=== PATIENT | female | born 1990 | race Caucasian/White ===

== ENCOUNTER 2017-01-15 18:06 | Emergency (ER) | payer BC, OTHER ==
[2017-01-15 18:41] VITALS: BP 133/71; PULSE 79; RESP 18; TEMP 98.2
--- NOTE | 2017-01-15 19:05 | XR ---
EXAMINATION TYPE: XR shoulder complete RT DATE OF EXAM: 01/15/2017 CLINICAL HISTORY: pain TECHNIQUE: Three views of the right shoulder are obtained. COMPARISON: None FINDINGS: There is no acute fracture/dislocation evident. The acromioclavicular and glenohumeral dalila int spaces appear within normal limits. The visualized ribs are intact and unremarkable. IMPRESSION: 1. There is no acute fracture or dislocation. ICD 10 NO FRACTURE, INITIAL EVALUATION
--- NOTE | 2017-01-15 19:14 | ED ---
Upper Extremity HPI - General Chief Complaint: Extremity Injury, Upper Stated Complaint: RT SHOULDER INJURY [facility] Time Seen by Provider: 01/15/17 18:44 Source: patient, RN notes reviewed Mode of arrival: ambulatory Limitations: no limitations - History of Present Illness Initial Comments: 26-year-old female presents to the emergency room chief complaint of right shoulder pain. 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 Patient states is more in the anterior shoulder and certain movements make it feel like it is about to pop. Patient states there is no falls or other injury. Patient denies any history of shoulder pain in the past.Patient denies any recent fever , chills, shortness of breath, chest pain, back pain, abdominal pain, nausea vomiting, numbness or tingling, dysuria or hematuria, constipation or diarrhea, headaches or visual changes, or any other current symptoms. Place: work - Related Data Home Medications Medication Instructions Recorded Confirmed Norethindrone-E.estradiol-Iron 1 each PO HS 05/09/15 05/11/15 [Loestrin Fe 1-20 Tablet] Previous Rx's Medication Instructions Recorded Acetaminophen [Tylenol] 2 tab PO Q6H 10 Days 05/11/15 Amoxicillin/Potassium Clav 1 each PO Q12HR #20 tab 05/11/15 [Augmentin 875-125 Tablet] Hydrocodone/Acetaminophen [Pachuta 1 - 2 each PO Q6HR PRN #40 tab 05/11/15 5-325] Ibuprofen [Motrin] 600 mg PO Q6HR PRN #60 tab 05/11/15 predniSONE 20 mg PO DIRECTED #5 tab 05/11/15 Ibuprofen [Motrin] 600 mg PO Q6HR PRN #20 tab 01/15/17 Allergies Allergy/AdvReac Type Severity Reaction Status Date / Time fluconazole [From Diflucan] Allergy Swelling Verified 01/15/17 18:41 OF FACE Review of Systems ROS Statement: Those systems with pertinent positive or pertinent negative responses have been documented in the HPI. ROS Other: All systems not noted in ROS Statement are negative. Past Medical History Past Medical History: Asthma, Syncope Additional Past Medical History / Comment(s): ASTHMA YOUNG CHILD. HX SYNCOPAL EPISODES, VAGO-VAGAL, NONE SINCE 2013. DEVIATED SEPTUM, CHRONIC SINUS INFECTION. History of Any Multi-Drug Resistant Organisms: MRSA Date of last positivie culture/infection: 09/2014 MDRO Source:: AXILLA, POSS IN EAR ALSO. Past Surgical History: Adenoidectomy, Ear Surgery, Tonsillectomy Additional Past Surgical History / Comment(s): BMT Past Anesthesia/Blood Transfusion Reactions: No Reported Reaction Past Psychological History: No Psychological Hx Reported Smoking Status: Never smoker Past Alcohol Use History: None Reported Past Drug Use History: None Reported - Past Family History Mother Family Medical History: No Reported History General Exam Limitations: no limitations General appearance: alert, in no apparent distress Head exam: Present: atraumatic, normocephalic, normal inspection Neck exam: Present: normal inspection. Absent: tenderness, meningismus, lymphadenopathy Respiratory exam: Present: normal lung sounds bilaterally. Absent: respiratory distress, wheezes, rales, rhonchi, stridor Cardiovascular Exam: Present: regular rate, normal rhythm, normal heart sounds. Absent: systolic murmur, diastolic murmur, rubs, gallop, clicks Right Shoulder Exam: Present: normal inspection, tenderness (Tenderness over the anterior shoulder), other (Negative empty can test.). Absent: full ROM ( Limited in all planes due to pain), swelling, abrasion, laceration, ecchymosis, deformity, crepitus, dislocation, erythema, tenderness over AC joint Upper Arm exam: Present: normal inspection, full ROM. Absent: tenderness, swelling Elbow exam: Present: normal inspection, full ROM. Absent: tenderness, swelling Forearm Wrist exam: Present: normal inspection, full ROM. Absent: tenderness, swelling Hand Wrist exam: Present: normal inspection, full ROM. Absent: tenderness, swelling Neuro motor exam: Present: wrist extension intact, thumb opposition intact, thumb IP flexion intact, thumb adduction intact, fingers 2-5 abduction intact Vascular: Present: normal capillary refill. Absent: vascular compromise Back exam: Present: normal inspection Neurological exam: Present: alert, oriented X3 Psychiatric exam: Present: normal affect, normal mood Skin exam: Present: warm, dry, intact, normal color. Absent: rash Course Vital Signs 01/15/17 18:39 Temperature 98.2 F Pulse Rate 79 Respiratory 18 Rate Blood Pressure 133/71 O2 Sat by Pulse 100 Oximetry Medical Decision Making - Medical Decision Making 26-year-old female presents emergency Department what appears to be right shoulder strain. X-rays reviewed and negative. We discussed using Motrin as prescribed and follow-up with orthopedic discussed return parameters. We discussed all the patient's family's questions. They stated they understand and agree with the plan. They will be discharged home. - Radiology Data Radiology results: report reviewed, image reviewed Disposition Clinical Impression: Right shoulder strain Disposition: HOME SELF-CARE Condition: Stable Instructions: Rotator Cuff Injury (ED) Additional Instructions: Please use medication as discussed. Please follow up with family doctor if symptoms have not improved over the next two days. Please return to the emergency room if your symptoms increase or worsen or for any other concerns. Prescriptions: Ibuprofen [Motrin] 600 mg PO Q6HR PRN #20 tab PRN Reason: Pain Referrals: Willi El MD [Primary Care Provider] - 1-2 days Jose Dunn MD [STAFF PHYSICIAN] - 1-2 days Time of Disposition: 19:14
== END 2017-01-15 19:23 | disposition home or self-care (01) ==
LOC: EC 18:06
DX: S46.911A Strain of unspecified muscle, fascia and tendon at shoulder and upper arm level, right arm, initial encounter (principal); Z79.3 Long term (current) use of hormonal contraceptives; Z88.8 Allergy status to other drugs, medicaments and biological substances; X50.9XXA Other and unspecified overexertion or strenuous movements or postures, initial encounter; Y93.F2 Activity, caregiving, lifting; Y92.69 Other specified industrial and construction area as the place of occurrence of the external cause; Y99.0 Civilian activity done for income or pay
CPT/HCPCS: 99283

== ENCOUNTER → 2017-05-15 | Outpatient (CLI) | payer OTHER ==
--- NOTE | 2017-05-16 07:05 | US ---
EXAMINATION TYPE: US OB <= 14 wk fetus DATE OF EXAM: 05/15/2017 COMPARISON: NONE CLINICAL HISTORY: Z36 CONFIRM DATES. G0 EXAM PERFORMED: Transabdominal (TA) EXAM MEASUREMENTS: GESTATIONAL AGE / DATING Physician Established: Not yet established Dates by LMP: (8 weeks/3 days) EDC: 12/22/2017 Dates by First Scan: No previous this is first scan Dates by Current Scan for: (8 weeks/5 days) EDC: 12/20/2017 MATERNAL ANATOMY Uterus: 11.2 x 6.1 x 4.3cm Right Ovary: 2.5 x 1.8 x 1.1cm Left Ovary: 3.4 x 2.7 x 2.1cm Post CDS / Adnexa: wnl Presence of free fluid: no Presence of corpus luteal cyst: seen in left ovary = 1.9 x 1.7 x 1.4cm Presence of subchorionic bleed: no GESTATION / SURVEY CRL: 2.1cm ( 8 weeks/5 days) Yolk Sac (normal less than 6mm): 4.3mm Heart Rate: 171 bpm Rhythm: Normal IUP: Viable IUP Date of LMP: 03/17/2017 Beta HcG (if available): NA IMPRESSION: Single live uterine corresponding to a sonographic age of 8 weeks/5 days with an estimated date of delivery of 12/20/2017 and HR 171bpm. Dates are concordant with the menstrual age.
== END | disposition home or self-care (01) ==
LOC: RADUSWWP 15:38
PROVIDERS: ATTEND Obstetrics & Gynecology
DX: Z36 Encounter for antenatal screening of mother (principal); Z3A.08 8 weeks gestation of pregnancy
CPT/HCPCS: 76801

== ENCOUNTER → 2017-05-23 | Outpatient (CLI) | payer OTHER ==
[2017-05-23 12:20] LABS: CH 29.5; CHCM 32.5; HDW 2.33; HGB 12.8 gm/dL (11.4-16.0); MCH 29.9 pg (25.0-35.0); MCHC 32.9 g/dL (31.0-37.0); Mean Platelet Volume 7.3; RBC 4.28 m/uL (3.80-5.40)
[2017-05-23 12:59] LABS: Glucose 88 mg/dL (74-99); Non-African American GFR(MDRD) >60 (>60 ml/min/1.73 sqM)
[2017-05-23 18:51] LABS: Treponemal Ab Non-Reactive (Non-Reactive)
[2017-05-24 08:05] LABS: Toxoplasma Antibody (IgG) <3.0 IU/mL (<7.2)
== END | disposition home or self-care (01) ==
LOC: LABWHC1 11:54
PROVIDERS: ATTEND Obstetrics & Gynecology
DX: O26.811 Pregnancy related exhaustion and fatigue, first trimester (principal); Z3A.00 Weeks of gestation of pregnancy not specified
CPT/HCPCS: 36415; 82565; 82947; 85027; 86762; 86777; 86778; 86780; 86850; 86900; 86901; 87340; 87390

== ENCOUNTER → 2017-09-09 | Outpatient (CLI) | payer OTHER ==
[2017-09-09 11:15] LABS: HCT 37.4 % (34.0-46.0); HGB 12.4 gm/dL (11.4-16.0); MCH 30.5 pg (25.0-35.0); MCHC 33.1 g/dL (31.0-37.0); MCV 92.2 fL (80.0-100.0); Mean Platelet Volume 7.6; Platelet Count 232 k/uL (150-450); RBC 4.06 m/uL (3.80-5.40); RDW 13.2 % (11.5-15.5); WBC 12.1 k/uL (3.8-10.6)
== END | disposition home or self-care (01) ==
LOC: LABWHC1 08:50
PROVIDERS: ATTEND Obstetrics & Gynecology
DX: Z34.02 Encounter for supervision of normal first pregnancy, second trimester (principal); Z3A.00 Weeks of gestation of pregnancy not specified
CPT/HCPCS: 36415; 82950; 85027

== ENCOUNTER 2017-12-01 11:45 | Inpatient (IN) | payer OTHER ==
[2017-12-01 12:44] LABS: Basophils % (A) 0 %; Eosinophils # (A) 0.1 k/uL (0-0.7); Eosinophils % (A) 1 %; HCT 34.8 % (34.0-46.0); HGB 11.9 gm/dL (11.4-16.0); Lymphocytes # (A) 1.8 k/uL (1.0-4.8); Lymphocytes % (A) 18 %; MCH 29.1 pg (25.0-35.0); MCHC 34.1 g/dL (31.0-37.0); MCV 85.4 fL (80.0-100.0); Mean Platelet Volume 10.1; Monocytes # (A) 0.5 k/uL (0-1.0); Monocytes % (A) 6 %; Neutrophils # (A) 7.1 k/uL (1.3-7.7); Neutrophils % (A) 73 %; Platelet Count 167 k/uL (150-450); RBC 4.07 m/uL (3.80-5.40); WBC 9.8 k/uL (3.8-10.6)
[2017-12-01 12:50] LABS: ALT 16 U/L (9-52); AST 19 U/L (14-36); Blood Urea Nitrogen 6 mg/dL (7-17); LDH 480 U/L (313-618); Uric Acid 4.2 mg/dL (3.7-7.4)
[2017-12-01] MEDS ORDERED: DINOPROSTONE 10 MG INSERT.ER VAGINAL ONE (12:53)
--- NOTE | 2017-12-01 13:04 | P.HPOB ---
History of Present Illness H&P Date: 12/01/17 Chief Complaint: I per tension. This patient is a pleasant 27-year-old 1 para 0 female estimated date of confinement 12/22/2017 estimated gestational age 37 weeks who presented to my office today for routine visit was found to have an elevated blood pressure 140/80. Patient subsequently sent to labor and delivery and has multiple blood pressures with diastolic elevation as high as 97. Patient's care otherwise has been uncomplicated. She does have a history of vasovagal syncope prior to her . Patient does have a positive group B strep. Review of Systems Genitourinary: Reports Past Medical History Past Medical History: Asthma, Syncope Additional Past Medical History / Comment(s): ASTHMA YOUNG CHILD. HX SYNCOPAL EPISODES, VAGO-VAGAL, NONE SINCE 2013. DEVIATED SEPTUM, CHRONIC SINUS INFECTION. History of Any Multi-Drug Resistant Organisms: MRSA Date of last positivie culture/infection: 09/2014 MDRO Source:: AXILLA, POSS IN EAR ALSO. Past Surgical History: Adenoidectomy, Ear Surgery, Tonsillectomy Additional Past Surgical History / Comment(s): BMT Past Anesthesia/Blood Transfusion Reactions: No Reported Reaction Smoking Status: Never smoker - Past Family History Mother Family Medical History: No Reported History Medications and Allergies Home Medications Medication Instructions Recorded Confirmed Type Ibuprofen [Motrin] 600 mg PO Q6HR PRN #20 tab 01/15/17 09/21/17 Rx Pnv,Calcium 72/Iron/Folic Acid 1 tab PO DAILY 09/21/17 09/21/17 History [ Plus Tablet] Allergies Allergy/AdvReac Type Severity Reaction Status Date / Time fluconazole [From Diflucan] Allergy Swelling Verified 12/01/17 12:02 of Lips Exam - Vital Signs Vital signs: Intake and Output 11/30/17 12/01/17 12/01/17 22:59 06:59 14:59 Other: Weight 82.554 kg - OBG Physical Exam Abdomen: bowel sounds normal, no diffuse tenderness, no bruit present, no guarding noted, no hepatomegaly, no splenomegaly, no mass Vagina: normal moisture, no discharge Cervix: no lesion (cervix is closed and thick), no discharge Uterus: enlarged (fundal height is 37 cm) Results blood work shows she is O positive, rubella immune, RPR nonreactive, HIV nonreactive, hepatitis B negative, Glucola was normal, ultrasounds have been normal, group B strep was positive. Result Diagrams: 12/01/17 12:15 Abnormal Lab Results - Last 24 Hours (Table) 12/01/17 Range/Units 12:15 BUN 6 L (7-17) mg/dL Creatinine 0.49 L (0.52-1.04) mg/dL Assessment and Plan Assessment: This patient is a pleasant 27-year-old 1 para 0 female 37-0/7 weeks gestation who is admitted to labor and delivery for evaluation of hypertension and felt to have gestational hypertension. At this time recommendations are to proceed with delivery. Plan is to check preeclampsia blood work, and proceed with Cervidil induction this evening due to unfavorable cervix. Patient will need group B strep prophylaxis in labor. I discussed clinical situation and treatment plan with the patient and she has agreed to proceed. (1) Third trimester Current Visit: Yes Status: Acute Code(s): Z34.93 - ENCNTR FOR SUPRVSN OF NORMAL PREG, UNSP, THIRD TRIMESTER SNOMED Code(s): 89350602 (2) Gestational hypertension Current Visit: Yes Status: Acute Code(s): O13.9 - GESTATIONAL HTN W/O SIGNIFICANT PROTEINURIA, UNSP TRIMESTER SNOMED Code(s): 04166128
[2017-12-01 13:15] LABS: Appearance,Urine Clear (Clear); Bilirubin,Urine Negative (Negative); Blood,Urine Negative (Negative); Color,Urine Light Yellow; Glucose,Urine (UA) Negative (Negative); Ketones,Urine Negative (Negative); Leukocyte Esterase,Urine Large (Negative); Mucus,Urine Rare /hpf; Nitrite,Urine Negative (Negative); PH, Urine 6.5 (5.0-8.0); Protein,Urine Negative (Negative); RBC,Urine 3 /hpf (0-5); Specific Gravity,Urine 1.007 (1.001-1.035); Squamous Epithelial Cell,Urine 3 /hpf (0-4); Urobilinogen,Urine <2.0 mg/dL (<2.0); WBC,Urine 2 /hpf (0-5)
[2017-12-01 13:39] LABS: Anisocytosis (M) Present; Large Platelets Present
[2017-12-01 16:08] VITALS: BMI 33.3
[2017-12-02] MEDS: BUTORPHANOL 1 MG/ML 1 ML VIAL IV PRN ×2 (02:17→06:30)
[2017-12-02] MEDS ORDERED: METHYLERGONOVINE 0.2 MG/ML 1 ML AMP IM PRN (05:15)
[2017-12-02] MEDS ORDERED: LIDOCAINE 1% (PF) 10 MG/ML (30 ML SDV) SQ PRN (05:15)
[2017-12-02] MEDS ORDERED: AMPICILLIN 2,000 MG in SODIUM CHLORIDE 0.9% 100 ML IVPB STA (05:15)
[2017-12-02] MEDS ORDERED: TERBUTALINE 1 MG/ML VIAL SQ PRN (05:15)
[2017-12-02] MEDS ORDERED: CARBOPROST TROMETHAMINE 250 MCG/ML 1 ML AMP IM PRN (05:15)
[2017-12-02] MEDS ORDERED: OXYTOCIN 10 UNIT/ML 1 ML VIAL IM PRN (05:15)
[2017-12-02] MEDS: LACTATED RINGERS 1,000 ML IV SCH ×4 (05:50→22:26)
--- NOTE | 2017-12-02 06:15 | P.PN ---
Progress Note - Text Progress Note Date: 12/02/17 Cervidil was removed at approximately 5:00 this morning. Cervix is 1-2 cm dilated still somewhat thick but soft. heart tones are reassuring. Artificial rupture membranes was done for clear fluid. Patient this time is having regular painful contractions or femoral hold off on Pitocin until needed. Dr. Neri will be taking over on this patient after 8:00 this morning.
[2017-12-02] MEDS: OXYTOCIN 20 UNITS/1000 ML NS 1,000 ML IV SCH (07:43)
[2017-12-02] MEDS ORDERED: BUPIVACAINE (PF) 0.25% 30 ML VIAL ONE (09:27)
[2017-12-02] MEDS ORDERED: SODIUM CHLORIDE 0.9% 100 ML BAG ONE (09:27)
[2017-12-02] MEDS ORDERED: fentaNYL (PF) 50 MCG/ML 5 ML AMP ONE (09:27)
[2017-12-02] MEDS: AMPICILLIN 1,000 MG in SODIUM CHLORIDE 0.9% 50 ML IVPB SCH ×3 (10:02→18:57)
[2017-12-02] MEDS ORDERED: CITRIC ACID-SODIUM CITRATE 15 ML CUP PO ONE (20:21)
[2017-12-02] MEDS ORDERED: MORPHINE SULFATE (PF) 0.3 MG/0.3 ML SYR ONE (20:43)
[2017-12-02] MEDS ORDERED: KETOROLAC 30 MG/ML 1 ML VIAL ONE (20:43)
[2017-12-02] MEDS ORDERED: OXYTOCIN 10 UNIT/ML 1 ML VIAL ONE (20:43)
[2017-12-02] MEDS ORDERED: ONDANSETRON 4 MG/2 ML VIAL ONE (20:43)
[2017-12-02] MEDS ORDERED: MORPHINE SULFATE 2 MG/ML SYRINGE IVP PRN (21:06)
[2017-12-02] MEDS ORDERED: diphenhydrAMINE 50 MG/ML 1 ML VIAL IVP PRN ×3 (21:06→21:26)
[2017-12-02] MEDS ORDERED: KETOROLAC 30 MG/ML 1 ML VIAL IVP PRN (21:06)
[2017-12-02] MEDS ORDERED: ONDANSETRON 4 MG/2 ML VIAL IVP PRN ×2 (21:06→21:26)
[2017-12-02] MEDS ORDERED: NALOXONE 0.4 MG/ML 1 ML VIAL IV PRN ×2 (21:06→21:26)
[2017-12-02] MEDS ORDERED: METOCLOPRAMIDE 5 MG/ML 2 ML VIAL IVP PRN (21:26)
[2017-12-02] MEDS ORDERED: ZOLPIDEM 5 MG TAB PO PRN (21:26)
[2017-12-02] MEDS ORDERED: diphenhydrAMINE 25 MG CAP PO PRN (21:26)
[2017-12-02] MEDS ORDERED: diphenhydrAMINE 50 MG CAP PO PRN (21:26)
[2017-12-02] MEDS ORDERED: ACETAMINOPHEN TAB 325 MG TAB PO PRN (21:26)
[2017-12-02] MEDS ORDERED: MEASLES-MUMPS-RUBELLA VACC/PF 12,500 UNIT/0.5 ML VIAL SQ ONE (21:26)
[2017-12-02] MEDS ORDERED: SIMETHICONE 80 MG CHEWABLE PO PRN (21:26)
[2017-12-02] MEDS ORDERED: HYDROcodone/APAP 5-325MG 1 EACH TAB PO PRN ×2 (21:27)
--- NOTE | 2017-12-02 21:31 | P.OP ---
Date of Procedure: 12/02/17 Preoperative Diagnosis: Intrauterine term with gestational hypertension: Failure to descend Postoperative Diagnosis: Same baby delivered from left occiput transverse position Procedure(s) Performed: Primary low transverse section Anesthesia: spinal Surgeon: Kin Neri Electric Meter Reader #1: Carmina Schuler Estimated Blood Loss (ml): 500 IV fluids (ml): 600 Urine output (ml): 50 Pathology: other (Placenta) Condition: stable Disposition: floor Operative Findings: Male scores and weight are pending but both mother and baby are stable following delivery Description of Procedure: Patient was taken to the operating suite where a spinal anesthetic was found be adequate. She was prepped and draped in the normal sterile fashion and placed in the dorsal supine position with leftward tilt. Initially a Pfannenstiel skin incision was made and this incision was then carried through to underlying layer of the fashion with second knife pack. Fascia was then nicked in the midline and this opening was extended laterally with Garner scissors. Superior and inferior aspect of this incision were then grasped tented up and bluntly and sharply dissected off the rectus muscles. Rectus muscles were then divided in the midline and blunt dissection through the peritoneum was made. This opening was then extended superiorly and inferiorly with good visualization of both bowel bladder. Bladder blade was then placed and the bladder flap identified entered with Metzenbaum scissors and this opening was extended across face uterus with Metzenbaum scissors and digitally created bladder flap. Knife was then used to incise uterus this opening was fully developed with hemostat and extended bluntly. Head was then atraumatically delivered from left occiput transverse position. Mouth nares were then bulb suctioned and a nuchal cord 1 was easily reduced. Interim posterior shoulders were then delivered with gentle downward and upward traction followed by the remainder the baby. Umbilical cord was then clamped and cut in usual fashion an nursery personnel was present to assume care. Placenta was then delivered intact and Pitocin was added to the IV. Uterus was then exteriorized cleared of clots and debris and closed in 2 layers with 0 Vicryl suture. Once excellent hemostasis was obtained blood and debris was suctioned from the posterior cul-de-sac. Uterus was then reinserted into the abdomen and the peritoneal layers close 0 Vicryl suture. Fascial layer was then closed Lobac suture. 3-0 Vicryl was then used to reapproximate the skin and close the space. Skin was then closed with 3-0 Vicryl on a Serge needle. Sponge, lap, needle counts were all correct 2. Patient was then taken to the recovery room in stable and satisfactory condition.
[2017-12-03] MEDS: LACTATED RINGERS 1,000 ML IV SCH (05:33)
[2017-12-03] MEDS: OXYTOCIN 20 UNITS/1000 ML NS 1,000 ML IV SCH (05:33)
[2017-12-03] MEDS: AMPICILLIN 1,000 MG in SODIUM CHLORIDE 0.9% 50 ML IVPB SCH (05:34)
--- NOTE | 2017-12-03 06:21 | P.PNOBGPC ---
Subjective - Subjective Patient reports: Reports appetite normal, Reports voiding normally, Reports pain well controlled, Reports ambulating normally : doing well Objective - Vital Signs Latest vital signs: Vital Signs Temp Pulse Resp BP Pulse Ox 12/03/17 05:37 16 96 12/02/17 22:16 61 16 113/55 99 12/02/17 22:01 97.0 F L 66 16 127/57 98 12/02/17 21:46 100 16 115/54 98 12/02/17 21:31 97.0 F L 75 16 112/56 98 Intake and Output 12/02/17 12/02/17 12/03/17 14:59 22:59 06:59 Intake Total 2300 600 Output Total 550 Balance 2300 50 Intake: IV 600 Intake, IV Titration 2300 Amount Ampicillin 2,000 mg In 300 Sodium Chloride 0.9% 100 ml @ 200 mls/hr IVPB ONCE STA Rx#:[id number] Lactated Ringers 1,000 ml 2000 @ 125 mls/hr IV .Q8H SERENA Rx#:[id number] Output: Urine 50 Estimated Blood Loss 500 Other: Voiding Method Indwelling Catheter - Exam Lungs: bilateral: normal Chest: Normal S1, Normal S2 Extremities: Present: normal Abdomen: Present: normal appearance, soft. Absent: distention, tenderness Incision: Present: normal, dry, intact Uterus: Present: normal, firm Assessment and Plan Assessment: Post operative day #1. Patient is resting, is having some nausea and some episodes of emesis but otherwise feeling well.. Vital signs are stable she's afebrile. Uterus is firm nontender and her incision is intact and dry. CBC pending at this time. My impression this is a normal postoperative course. Plan at this time is to advance diet as tolerated, check CBC, encourage ambulation, and allow the patient to shower. (1) Third trimester Current Visit: Yes Status: Acute Code(s): Z34.93 - ENCNTR FOR SUPRVSN OF NORMAL PREG, UNSP, THIRD TRIMESTER SNOMED Code(s): 52612711 (2) Gestational hypertension Current Visit: Yes Status: Acute Code(s): O13.9 - GESTATIONAL HTN W/O SIGNIFICANT PROTEINURIA, UNSP TRIMESTER SNOMED Code(s): 67327215
[2017-12-03 08:12] LABS: Basophils % (A) 0 %; Eosinophils % (A) 0 %; HCT 31.8 % (34.0-46.0); HGB 10.2 gm/dL (11.4-16.0); Lymphocytes # (A) 1.9 k/uL (1.0-4.8); Lymphocytes % (A) 8 %; MCH 28.1 pg (25.0-35.0); MCV 87.8 fL (80.0-100.0); Mean Platelet Volume 10.4; Monocytes # (A) 0.9 k/uL (0-1.0); Monocytes % (A) 4 %; Neutrophils # (A) 21.9 k/uL (1.3-7.7); Neutrophils % (A) 88 %; Platelet Count 183 k/uL (150-450); RBC 3.62 m/uL (3.80-5.40); RDW 13.4 % (11.5-15.5); WBC 24.9 k/uL (3.8-10.6)
--- NOTE | 2017-12-03 08:37 | P.PN ---
Progress Note - Text Progress Note Date: 12/03/17 Postoperative day 1 status post section under spinal anesthesia, and intrathecal morphine given for postoperative analgesia, patient complaining of nausea, and she is getting IV Zofran to 6 hours, Patient had no headache, vital signs stable , Assessment and plan= postop day 1 status post , pain well controlled she is having side effects from morphine, nausea and vomiting and which is managed with the IV Zofran, recommend to continue the same management, expoected the nausea ,to improve within the next few hours.
[2017-12-03] MEDS: SENNOSIDES-DOCUSATE SODIUM 1 EACH TAB PO SCH ×2 (13:30→22:21)
[2017-12-03] MEDS: IBUPROFEN 600 MG TAB PO PRN ×2 (16:42→22:20)
[2017-12-04 00:09] VITALS: RESP 16
--- NOTE | 2017-12-04 06:16 | P.PNOBGPC ---
Subjective - Subjective Patient reports: Reports appetite normal, Reports voiding normally, Reports pain well controlled, Reports ambulating normally : doing well Objective - Vital Signs Latest vital signs: Vital Signs Temp Pulse Resp BP Pulse Ox 12/04/17 00:00 98.1 F 77 16 103/57 12/03/17 20:45 98.4 F 81 15 108/72 98 12/03/17 16:00 97.8 F 73 16 113/70 12/03/17 12:00 97.1 F L 86 18 100 12/03/17 08:00 97.6 F 66 16 113/74 97 Intake and Output 12/03/17 12/03/17 12/04/17 14:59 22:59 06:59 Output Total 1000 250 250 Balance -1000 -250 -250 Output: Urine 1000 250 250 Straight 500 Uretheral (Grewal) 250 Other: # Voids 1 1 - Exam Lungs: bilateral: normal Chest: Normal S1, Normal S2 Extremities: Present: normal Abdomen: Present: normal appearance, soft. Absent: distention, tenderness Incision: Present: normal, dry, intact Uterus: Present: normal, firm - Labs Labs: Abnormal Lab Results - Last 24 Hours (Table) 12/03/17 Range/Units 07:29 WBC 24.9 H (3.8-10.6) k/uL RBC 3.62 L (3.80-5.40) m/uL Hgb 10.2 L (11.4-16.0) gm/dL Hct 31.8 L (34.0-46.0) % Neutrophils # 21.9 H (1.3-7.7) k/uL Assessment and Plan Assessment: Postoperative day #2. Patient is resting without complaints and states she's feeling much better and would like to go home. Vital signs are stable and she is afebrile. Uterus is firm nontender and her incision is intact and dry. CBC yesterday did show her white count was elevated to 24.9 however she is afebrile. Patient is tolerating regular diet, ambulate, urinating without difficulty. Plan today is to check another CBC. If her white count is going down and she remains afebrile throughout the morning then I will consider discharge home later today per her request. (1) Third trimester Current Visit: Yes Status: Acute Code(s): Z34.93 - ENCNTR FOR SUPRVSN OF NORMAL PREG, UNSP, THIRD TRIMESTER SNOMED Code(s): 98566011 (2) Gestational hypertension Current Visit: Yes Status: Acute Code(s): O13.9 - GESTATIONAL HTN W/O SIGNIFICANT PROTEINURIA, UNSP TRIMESTER SNOMED Code(s): 14586767
[2017-12-04 07:31] LABS: Basophils % (A) 0 %; Eosinophils # (A) 0.2 k/uL (0-0.7); Eosinophils % (A) 1 %; HCT 27.3 % (34.0-46.0); HGB 8.9 gm/dL (11.4-16.0); Lymphocytes # (A) 1.9 k/uL (1.0-4.8); Lymphocytes % (A) 14 %; MCH 28.6 pg (25.0-35.0); MCHC 32.5 g/dL (31.0-37.0); MCV 87.9 fL (80.0-100.0); Mean Platelet Volume 9.2; Monocytes # (A) 0.7 k/uL (0-1.0); Monocytes % (A) 5 %; Neutrophils # (A) 10.3 k/uL (1.3-7.7); Neutrophils % (A) 78 %; Platelet Count 157 k/uL (150-450); RDW 13.5 % (11.5-15.5); WBC 13.1 k/uL (3.8-10.6)
[2017-12-04 08:19] VITALS: BP 113/72; PULSE 85; TEMP 98.6
[2017-12-04] MEDS: IBUPROFEN 600 MG TAB PO PRN (09:43)
--- NOTE | 2017-12-04 12:11 | P.PN ---
Progress Note - Text Progress Note Date: 12/04/17 Patient is seen again and still desires to go home. CBC shows her white count is decreased elevated 13 and she is afebrile. Patient is ambulating, urinating , and tolerating regular diet without difficulty. Patient's felt to be stable for discharge home.
--- NOTE | 2017-12-06 06:50 | P.DS ---
Providers Date of admission: 12/01/17 12:49 Expected date of discharge: 12/04/17 Attending physician: Ahmet Angeles Primary care physician: Stated None - Discharge Diagnosis(es) (1) Third trimester Status: Acute (2) Gestational hypertension Status: Acute Hospital Course: Please see dictated H&P for intimate details of this patient's admission. Brief summary is a pleasant 27-year-old 1 para 0 female 37 weeks gestation who is admitted to labor and delivery for two-stage induction of labor secondary to gestational hypertension. Patient is a Cervidil placed and then subsequently has induction of labor. Patient does progress to complete and after pushing for at least 2 hours requires a section for failure to descent. Postoperative patient does well. She did have an elevated white count on postoperative day 1 but this is thought to be secondary to labor and her section and I repeated discussed the following day and it was normal. Patient no evidence of infection. Patient wishes to go home at this time was felt to be stable for discharge home follow up with me in 6 weeks. Procedures: Induction of labor and primary low transverse section. Patient Condition at Discharge: Good Plan - Discharge Summary New Discharge Prescriptions: No Action Ibuprofen [Motrin] 600 mg PO Q6HR PRN #20 tab PRN Reason: Pain Pnv,Calcium 72/Iron/Folic Acid [ Plus Tablet] 1 tab PO DAILY Discharge Medication List Ibuprofen [Motrin] 600 mg PO Q6HR PRN #20 tab 01/15/17 [Rx] Pnv,Calcium 72/Iron/Folic Acid [ Plus Tablet] 1 tab PO DAILY 09/21/17 [ History] Follow up Appointment(s)/Referral(s): Ahmet Angeles MD [STAFF PHYSICIAN] - 12/15/17 1:30 pm Patient Instructions/Handouts: (DC) Activity/Diet/Wound Care/Special Instructions: No strenuous activity or heavy lifting for 6 weeks. No intercourse or anything per vagina for 6 weeks. Please call if any fever, chills, excessive vaginal bleeding, and/or abdominal pain. Discharge Disposition: HOME SELF-CARE
== END 2017-12-04 13:30 | disposition home or self-care (01) | DRG 766 ==
LOC: FBPOP 11:45 → 4FBP 12:49
PROVIDERS: ADMIT Obstetrics & Gynecology; ATTEND Obstetrics & Gynecology
PROC: 10907ZC Drainage of Amniotic Fluid, Therapeutic from Products of Conception, Via Natural or Artificial Opening (ICD-10-PCS; 2017-12-02)
PROC: 00HU33Z Insertion of Infusion Device into Spinal Canal, Percutaneous Approach (ICD-10-PCS; 2017-12-02)
PROC: 3E0R3NZ Introduction of Analgesics, Hypnotics, Sedatives into Spinal Canal, Percutaneous Approach (ICD-10-PCS; 2017-12-02)
PROC: 10D00Z1 Extraction of Products of Conception, Low, Open Approach (ICD-10-PCS; principal; 2017-12-02 20:47)
DX: O13.4 Gestational [pregnancy-induced] hypertension without significant proteinuria, complicating childbirth (principal); O64.0XX0 Obstructed labor due to incomplete rotation of fetal head, not applicable or unspecified; O32.4XX0 Maternal care for high head at term, not applicable or unspecified; O99.824 Streptococcus B carrier state complicating childbirth; R11.2 Nausea with vomiting, unspecified; O90.89 Other complications of the puerperium, not elsewhere classified; Z3A.37 37 weeks gestation of pregnancy; Z88.8 Allergy status to other drugs, medicaments and biological substances; Z37.0 Single live birth; Z79.1 Long term (current) use of non-steroidal anti-inflammatories (NSAID); Z86.14 Personal history of Methicillin resistant Staphylococcus aureus infection; Z87.09 Personal history of other diseases of the respiratory system; Z90.89 Acquired absence of other organs
CPT/HCPCS: 59025; 81001; 82565; 83615; 84450; 84460; 84520; 84550; 85025; 88307

== ENCOUNTER → 2019-02-19 | Outpatient (CLI) | payer OTHER ==
[2019-02-19 12:42] LABS: Basophils % (A) 1 %; Eosinophils # (A) 0.2 k/uL (0-0.7); Eosinophils % (A) 5 %; HCT 41.2 % (34.0-46.0); HGB 13.5 gm/dL (11.4-16.0); Lymphocytes # (A) 1.9 k/uL (1.0-4.8); Lymphocytes % (A) 36 %; MCH 28.9 pg (25.0-35.0); MCHC 32.8 g/dL (31.0-37.0); MCV 88.2 fL (80.0-100.0); Mean Platelet Volume 7.8; Monocytes # (A) 0.2 k/uL (0-1.0); Monocytes % (A) 3 %; Neutrophils # (A) 2.8 k/uL (1.3-7.7); Neutrophils % (A) 54 %; Platelet Count 218 k/uL (150-450); RBC 4.67 m/uL (3.80-5.40); RDW 13.7 % (11.5-15.5); WBC 5.2 k/uL (3.8-10.6)
== END | disposition home or self-care (01) ==
LOC: LABPAT 12:24
PROVIDERS: ATTEND Obstetrics & Gynecology
DX: Z01.812 Encounter for preprocedural laboratory examination (principal)
CPT/HCPCS: 85025

== ENCOUNTER → 2019-03-05 | Day surgery (SDC) | payer OTHER ==
[2019-03-03 13:39] VITALS: BMI 24.5
--- NOTE | 2019-03-04 08:04 | P.HPOB ---
History of Present Illness H&P Date: 03/04/19 Chief Complaint: Family planning, requesting permanent sterilization. This patient is a pleasant 28 yr old female who is presenting for laparoscopic fallopian tube cauterization for permanent sterilization. Kelly has one living child and I have had multiple discussions with her about and options, she has chosen female permanent sterilization. Review of Systems All systems: negative Constitutional: Denies chills, Denies fever Eyes: denies blurred vision, denies pain Ears, nose, mouth and throat: Denies headache, Denies sore throat Cardiovascular: Denies chest pain, Denies shortness of breath Respiratory: Denies cough Gastrointestinal: Denies abdominal pain, Denies diarrhea, Denies nausea, Denies vomiting Genitourinary: Denies dysuria, Denies hematuria Musculoskeletal: Denies myalgias Integumentary: Denies pruritus, Denies rash Neurological: Denies numbness, Denies weakness Psychiatric: Denies anxiety, Denies depression Endocrine: Denies fatigue, Denies weight change Past Medical History Past Medical History: Asthma, Syncope Additional Past Medical History / Comment(s): ASTHMA YOUNG CHILD. HX SYNCOPAL EPISODES, VAGO-VAGAL, NONE SINCE 2013. DEVIATED SEPTUM, CHRONIC SINUS INFECTION. History of Any Multi-Drug Resistant Organisms: MRSA Date of last positivie culture/infection: 09/2014 MDRO Source:: AXILLA, POSS IN EAR ALSO. Past Surgical History: Adenoidectomy, Section, Ear Surgery, Tonsillectomy Additional Past Surgical History / Comment(s): BMT ,sinus surgery Past Anesthesia/Blood Transfusion Reactions: Postoperative Nausea & Vomiting (PONV) Past Psychological History: No Psychological Hx Reported Smoking Status: Never smoker Past Alcohol Use History: None Reported Past Drug Use History: None Reported - Past Family History Mother Family Medical History: No Reported History Medications and Allergies Home Medications Medication Instructions Recorded Confirmed Type No Known Home Medications 03/03/19 03/03/19 History Allergies Allergy/AdvReac Type Severity Reaction Status Date / Time fluconazole [From Diflucan] Allergy Swelling Verified 03/03/19 13:32 of Lips Exam - OBG Physical Exam Abdomen: bowel sounds normal, no diffuse tenderness, no bruit present, no guarding noted, no hepatomegaly, no splenomegaly, no mass Vulva: both: normal Vagina: normal moisture, no discharge Cervix: no lesion, no discharge Uterus: normal size Assessment and Plan Assessment: This is a pleasant 28 yr old female who is presenting for permanent sterilization. Plan is laparoscopic bilateral fallopian tube cauterization. I have discussed multiple other options for control including hormonal methods, IUD, male sterilization and this is the method she has chosen. She understands that this procedure is considered permanent, however there is a ~12/999 chance of failure. 50% chance of ectopic and/or tubal if ever . We discussed the surgery and risks: infection, bleeding, possible injury to bowel/bladder/vessels and/or other organs. She understands that this procedure is elective. All of the patients questions were answered and a written consent obtained. (1) Family planning Status: Acute Code(s): Z30.09 - ENCOUNTER FOR OTH GENERAL CNSL AND ADVICE ON CONTRACEPTION SNOMED Code(s): 740435883
[~2019-03-05] MED LIST: BUPIVACAINE (PF) 0.25% 30 ML VIAL SQ ONE; DEXAMETHASONE SOD PHOSPHATE 10 MG/ML 1 ML VIAL IV ONE; GLYCOPYRROLATE 0.2 MG/ML 2 ML VIAL ONE; HYDROmorphone (PF) 1 MG/ML ONE; HYDROmorphone 0.5 MG/0.5 ML SYRINGE IVP PRN; KETOROLAC 30 MG/ML 1 ML VIAL ONE; LACTATED RINGERS 1,000 ML IV ONE; LACTATED RINGERS 1,000 ML IV SCH; LIDOCAINE 1% 20 ML VIAL (10MG/ML) FOR IV START INTRADERMA ONE; LIDOCAINE 1% INJ 10MG/ML (20 ML MDV) ONE; MIDAZOLAM 2 MG/2 ML VIAL ONE; NEOSTIGMINE 1 MG/ML 10 ML VIAL ONE; ONDANSETRON 4 MG/2 ML VIAL IVP ONE; ONDANSETRON 4 MG/2 ML VIAL IVP PRN; PROPOFOL 10 MG/ML 20 ML VIAL IV ONE; Pre Op ABX Message 1 EACH MISC MISCELLANE ONE; ROCURONIUM BROMIDE 10 MG/ML 10 ML VIAL IV ONE; SCOPOLAMINE 1.5MG/72HR PATCH TRANSDERM ONE; fentaNYL (PF) 50 MCG/ML 2 ML AMP ONE
--- NOTE | 2019-03-05 08:12 | P.OP ---
Date of Procedure: 03/05/19 Preoperative Diagnosis: Family planning, desires permanent sterilization Postoperative Diagnosis: Same Procedure(s) Performed: Laparoscopic bilateral fallopian tube cauterization Anesthesia: EMERITAA Surgeon: Ahmet Angeles Estimated Blood Loss (ml): 10 Urine output (ml): 25 Pathology: none sent Condition: stable Disposition: PACU Indications for Procedure: Please see dictated H&P for intimate details of this patient's admission. Brief summary is a pleasant 28-year-old 1 para 1 female whose requested permanent sterilization for control. Patient has had multiple discussions about the surgery and the fact that it is permanent. She understands however there is a failure rate of approximately 5 or less per thousand. She understands if she does become she has a 50% chance of a tubal or an ectopic . Patient understands that laparoscopic surgery and apparently has risks including risks of infection, bleeding, possible injury bowel, bladder, vessels, and/or other organs. All the patient's questions are answered and a written consent is obtained. Operative Findings: This patient normal appearing pelvis. Description of Procedure: This patient is taken to the operating room where she is laid in the supine position. She subsequent undergoes general endotracheal anesthesia without incident. With an adequate level of anesthesia she's placed in dorsal lithotomy position. She has a vaginal perineal abdominal prep and drape. I first good on below placed a speculum into the vagina visualizing the cervix. The anterior lip of the cervix was then grabbed with an Allis clamp. I gently cannulate the endocervix with the acorn cannula an Allis is attached to the Allis clamp. Red Thyaer catheter is then placed into the bladder and left in place. This point the speculum is removed, I changed my gloves and go up above. A 1 cm infraumbilical incision is then made. Through this a 10 mm bladed lists optical trochars placed under direct visualization. With peritoneal placement confirmed, pneumoperitoneum was then created to 12 mm of carbon dioxide gas. A 5 mm incision is made through her previous scar. Through this a 5 mm trochars placed under direct visualization. One probe was then placed the pelvis is then visualized. Uterus tubes and ovaries all appear normal. There is a 2 cm functional cyst on the left ovary. The upper abdomen grossly appears normal. With this done bipolar cautery is then used to grabbed the left fallopian tube approximately 4 cm from its cornual insertion. A 2-3 cm segment of the tube was then cauterized in its entirety as demarcated by the volt meter. This done I turned my attention of the right fallopian tube and using a similar technique cauterization is done of the tubal segment. This completed final inspection is done and all appears hemostatic. The lower trochars removed. Pneumoperitoneum was reduced and the upper trochars removed. Incisions are then closed using a 4-0 Vicryl. Steri-Strips and sterile dressing is then applied. I infiltrate both incisions with quarter percent Marcaine. I on below remove the acorn cannula an Allis clamp and catheter. All counts are correct 3. There are no complications. Patient is awakened from anesthesia and taken recovery room in satisfactory condition.
[2019-03-05 08:23] VITALS: TEMP 98
[2019-03-05 08:32] VITALS: RESP 16
[2019-03-05 11:29] VITALS: BP 108/57; PULSE 94
== END | disposition home or self-care (01) ==
LOC: OR 06:26
PROVIDERS: ATTEND Obstetrics & Gynecology
DX: Z30.2 Encounter for sterilization (principal); N83.202 Unspecified ovarian cyst, left side; Z88.8 Allergy status to other drugs, medicaments and biological substances; Z86.14 Personal history of Methicillin resistant Staphylococcus aureus infection
CPT/HCPCS: 58670; 81025; J2250; J1100; J2710; J2405; J2001; J3010; J1885; J1170; J2704

== ENCOUNTER 2019-05-19 15:53 | Emergency (ER) | payer OTHER ==
[2019-05-19 16:06] VITALS: TEMP 98.5
[2019-05-19] MEDS ORDERED: KETOROLAC 30 MG/ML 1 ML VIAL IVP STA (16:46)
[2019-05-19] MEDS ORDERED: SODIUM CHLORIDE 0.9% 1,000 ML IV ONE (16:46)
[2019-05-19] MEDS ORDERED: CLINDAMYCIN 600 MG in DEXTROSE 5% IN WATER 50 ML IVPB STA ×2 (16:46)
[2019-05-19] MEDS ORDERED: SODIUM CHLORIDE 0.9% 1,000 ML IV SCH (17:00)
[2019-05-19 17:14] LABS: Basophils % (A) 1 %; Eosinophils # (A) 0.3 k/uL (0-0.7); Eosinophils % (A) 5 %; HCT 39.5 % (34.0-46.0); Lymphocytes # (A) 1.9 k/uL (1.0-4.8); Lymphocytes % (A) 33 %; MCH 29.4 pg (25.0-35.0); MCV 89.1 fL (80.0-100.0); Mean Platelet Volume 6.8; Monocytes # (A) 0.2 k/uL (0-1.0); Monocytes % (A) 4 %; Neutrophils # (A) 3.2 k/uL (1.3-7.7); Neutrophils % (A) 55 %; Platelet Count 222 k/uL (150-450); RBC 4.43 m/uL (3.80-5.40); RDW 13.2 % (11.5-15.5); WBC 5.7 k/uL (3.8-10.6)
[2019-05-19 17:20] LABS: ALT 17 U/L (9-52); AST 23 U/L (14-36); African American GFR (CKD) >90 (>60 ml/min/1.73 sqM); Albumin 4.6 g/dL (3.5-5.0); Alkaline Phosphatase 53 U/L (38-126); Anion Gap 10 mmol/L; Blood Urea Nitrogen 14 mg/dL (7-17); Calcium 9.6 mg/dL (8.4-10.2); Carbon Dioxide 25 mmol/L (22-30); Chloride 106 mmol/L (98-107); Glucose 115 mg/dL (74-99); Potassium 4.1 mmol/L (3.5-5.1); Sodium 141 mmol/L (137-145); Total Bilirubin 0.3 mg/dL (0.2-1.3); Total Protein 7.3 g/dL (6.3-8.2)
--- NOTE | 2019-05-19 17:42 | ED ---
Skin/Abscess/FB HPI - General Chief complaint: Skin/Abscess/Foreign Body Stated complaint: Infection-Cellulitis on her face Time Seen by Provider: 05/19/19 16:14 Source: patient, RN notes reviewed, old records reviewed Mode of arrival: ambulatory Limitations: no limitations - History of Present Illness Initial comments: Patient is a 28-year-old female, sent from her primary care doctor's office for concern for cellulitis over the right side of her face, and failure of outpatient treatment. Patient reports that on Friday she will comply a small pimple on her right eyebrow. Patient states that she went to her primary care doctor's office due to the pain. Patient states that she received IM Rocephin and was started on Keflex. She was seen by the PA there. Patient reports that the pain seemed to worsen and she was there for recheck. Patient was then sent here for concern for failure of outpatient treatment. 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 - Related Data Home Medications Medication Instructions Recorded Confirmed Cephalexin [Keflex] 1,000 mg PO BID 05/19/19 05/19/19 Previous Rx's Medication Instructions Recorded Clindamycin HCl [Cleocin] 300 mg PO Q6HR #28 cap 05/19/19 valACYclovir HCL [Valtrex] 1,000 mg PO Q8HR #21 tab 05/19/19 Allergies Allergy/AdvReac Type Severity Reaction Status Date / Time fluconazole [From Diflucan] Allergy Swelling Verified 05/19/19 16:51 of Lips Review of Systems ROS Statement: Those systems with pertinent positive or pertinent negative responses have been documented in the HPI. ROS Other: All systems not noted in ROS Statement are negative. Past Medical History Past Medical History: Asthma, Syncope Additional Past Medical History / Comment(s): ASTHMA YOUNG CHILD. HX SYNCOPAL EPISODES, VAGO-VAGAL, NONE SINCE 2013. DEVIATED SEPTUM, CHRONIC SINUS INFECTION. History of Any Multi-Drug Resistant Organisms: MRSA Date of last positivie culture/infection: 09/2014 MDRO Source:: AXILLA, POSS IN EAR ALSO. Past Surgical History: Adenoidectomy, Section, Ear Surgery, Tonsillectomy Additional Past Surgical History / Comment(s): BMT ,sinus surgery Past Anesthesia/Blood Transfusion Reactions: Postoperative Nausea & Vomiting (PONV) Past Psychological History: No Psychological Hx Reported Smoking Status: Never smoker Past Alcohol Use History: None Reported Past Drug Use History: None Reported - Past Family History Mother Family Medical History: No Reported History General Exam - General Exam Comments Initial Comments: Pleasant 28-year-old female. No significant distress. Limitations: no limitations General appearance: alert, in no apparent distress Head exam: Present: atraumatic, normocephalic, normal inspection Eye exam: Present: normal appearance, PERRL, EOMI, other (Patient is to pimple, blisterlike lesions over the right eyebrow.). Absent: scleral icterus, conjunctival injection, periorbital swelling ENT exam: Present: normal exam, TM's normal bilaterally, other (Patient is extremely tender to touch with light palpation over the face. She has roe cheeks. She states that's normal. Patient has no evidence of erysipelas or significant cellulitis at this time.) Neck exam: Present: normal inspection. Absent: tenderness, meningismus, lymphadenopathy Respiratory exam: Present: normal lung sounds bilaterally. Absent: respiratory distress, wheezes, rales, rhonchi, stridor Extremities exam: Present: normal inspection Back exam: Present: normal inspection Neurological exam: Present: alert, oriented X3, CN II-XII intact Psychiatric exam: Present: normal affect, normal mood Course Vital Signs 05/19/19 05/19/19 16:03 16:49 Temperature 98.5 F Pulse Rate 112 H 105 H Respiratory 18 18 Rate Blood Pressure 148/93 139/81 O2 Sat by Pulse 98 98 Oximetry Medical Decision Making - Medical Decision Making 28-year-old female presents for right-sided facial irritation swelling and redness. Symptoms started on Friday with a small blister. She is exquisitely tender to touch. Clinical concern is more consistent with herpes zoster infection. She is no fever at this time. No eye involvement. I discussed with Dr. Harmon we'll also examined the Patient. Since the Patient does have history of MRSA though he would discharge the Patient with a prescription for clindamycin. As well as cover for the antiviral medication such as Valtrex. She was given both of these doses in the emergency department. Dr. Harmon discussed the case with Dr. El. - Lab Data Result diagrams: 05/19/19 16:42 05/19/19 16:42 Lab Results 05/19/19 05/19/19 05/19/19 Range/Units 16:42 16:42 16:42 WBC 5.7 (3.8-10.6) k/uL RBC 4.43 (3.80-5.40) m/uL Hgb 13.0 (11.4-16.0) gm/dL Hct 39.5 (34.0-46.0) % MCV 89.1 (80.0-100.0) fL MCH 29.4 (25.0-35.0) pg MCHC 33.0 (31.0-37.0) g/dL RDW 13.2 (11.5-15.5) % Plt Count 222 (150-450) k/uL Neutrophils % 55 % Lymphocytes % 33 % Monocytes % 4 % Eosinophils % 5 % Basophils % 1 % Neutrophils # 3.2 (1.3-7.7) k/uL Lymphocytes # 1.9 (1.0-4.8) k/uL Monocytes # 0.2 (0-1.0) k/uL Eosinophils # 0.3 (0-0.7) k/uL Basophils # 0.0 (0-0.2) k/uL Sodium 141 (137-145) mmol/L Potassium 4.1 (3.5-5.1) mmol/L Chloride 106 (98-107) mmol/L Carbon Dioxide 25 (22-30) mmol/L Anion Gap 10 mmol/L BUN 14 (7-17) mg/dL Creatinine 0.48 L (0.52-1.04) mg/dL Est GFR (CKD-EPI)AfAm >90 (>60 ml/min/1.73 sqM) Est GFR (CKD-EPI)NonAf >90 (>60 ml/min/1.73 sqM) Glucose 115 H (74-99) mg/dL Plasma Lactic Acid Vinayak 1.0 (0.7-2.0) mmol/L Calcium 9.6 (8.4-10.2) mg/dL Total Bilirubin 0.3 (0.2-1.3) mg/dL AST 23 (14-36) U/L ALT 17 (9-52) U/L Alkaline Phosphatase 53 (38-126) U/L Total Protein 7.3 (6.3-8.2) g/dL Albumin 4.6 (3.5-5.0) g/dL Disposition Clinical Impression: Shingles, Facial pain Disposition: HOME SELF-CARE Condition: Good Instructions (If sedation given, give patient instructions): Shingles (ED) Additional Instructions: Please use medication as discussed. Please follow up with family doctor if symptoms have not improved over the next two days. Please return to the emergenc y room if your symptoms increase or worsen or for any other concerns. Prescriptions: Clindamycin HCl [Cleocin] 300 mg PO Q6HR #28 cap valACYclovir HCL [Valtrex] 1,000 mg PO Q8HR #21 tab Is patient prescribed a controlled substance at d/c from ED?: No Referrals: Willi El MD [Primary Care Provider] - 1-2 days
[2019-05-19] MEDS ORDERED: valACYclovir HCL 1,000 MG TABLET PO STA (17:43)
[2019-05-19 18:16] VITALS: BP 133/87; PULSE 89; RESP 16
== END 2019-05-19 18:51 | disposition home or self-care (01) ==
LOC: EC 15:53
DX: B02.9 Zoster without complications (principal); Z86.14 Personal history of Methicillin resistant Staphylococcus aureus infection; Z88.3 Allergy status to other anti-infective agents
CPT/HCPCS: 99284; 96365; 96375; 36415; 80053; 83605; 85025; J1885

== ENCOUNTER 2019-07-07 02:29 | Emergency (ER) | payer OTHER ==
[2019-07-07 02:37] VITALS: TEMP 98.5
[2019-07-07] MEDS ORDERED: PANTOPRAZOLE 40 MG/10 ML VIAL IVP STA (02:45)
[2019-07-07] MEDS ORDERED: ONDANSETRON 4 MG/2 ML VIAL IVP STA (02:45)
[2019-07-07] MEDS ORDERED: DICYCLOMINE 10 MG/ML 2 ML AMP IM STA (02:45)
[2019-07-07] MEDS ORDERED: SODIUM CHLORIDE 0.9% 1,000 ML IV STA (02:45)
[2019-07-07] MEDS ORDERED: MORPHINE SULFATE 2 MG/ML SYRINGE IVP ONE (03:02)
--- NOTE | 2019-07-07 03:02 | ED ---
Abdominal Pain HPI - General Chief Complaint: Abdominal Pain Stated Complaint: Abdominal Pain Time Seen by Provider: 07/07/19 02:44 Source: patient Mode of arrival: wheelchair Limitations: physical limitation - History of Present Illness Initial Comments: Patient is a 28-year-old female with no significant past medical history is presenting to the emergency room with a chief complaint of abdominal pain. Patient reports she was sleeping and woke up with a sudden onset of right upper quadrant abdominal pain that is not radiating to the right lower quadrant. Patient reports pain with adulation. Patient also reports nausea with one episode of vomiting and diarrhea. Patient denies night sweats fevers or chills. She states the pain is an 8 and sharp in nature. Patient denies taking medication to alleviate the symptoms. She does not concern for because she had tubal ligation a few months ago. - Related Data Home Medications Medication Instructions Recorded Confirmed No Known Home Medications 07/07/19 07/07/19 Allergies Allergy/AdvReac Type Severity Reaction Status Date / Time fluconazole [From Diflucan] Allergy Swelling Verified 07/07/19 02:37 of Lips Review of Systems ROS Statement: Those systems with pertinent positive or pertinent negative responses have been documented in the HPI. ROS Other: All systems not noted in ROS Statement are negative. Past Medical History Past Medical History: Asthma, Syncope Additional Past Medical History / Comment(s): ASTHMA YOUNG CHILD. HX SYNCOPAL EPISODES, VAGO-VAGAL, NONE SINCE 2013. DEVIATED SEPTUM, CHRONIC SINUS INFECTION. History of Any Multi-Drug Resistant Organisms: MRSA Date of last positivie culture/infection: 09/2014 MDRO Source:: AXILLA, POSS IN EAR ALSO. Past Surgical History: Adenoidectomy, Section, Ear Surgery, Tonsillectomy Additional Past Surgical History / Comment(s): BMT ,sinus surgery Past Anesthesia/Blood Transfusion Reactions: Postoperative Nausea & Vomiting (PONV) Past Psychological History: No Psychological Hx Reported Smoking Status: Never smoker Past Alcohol Use History: None Reported Past Drug Use History: None Reported - Past Family History Mother Family Medical History: No Reported History General Exam Limitations: physical limitation General appearance: alert, in no apparent distress Head exam: Present: atraumatic, normocephalic, normal inspection Eye exam: Present: normal appearance Pupils: Present: normal accommodation ENT exam: Present: normal exam, normal oropharynx, mucous membranes moist, TM's normal bilaterally, normal external ear exam Neck exam: Present: normal inspection, full ROM Respiratory exam: Present: normal lung sounds bilaterally Cardiovascular Exam: Present: regular rate, normal rhythm, normal heart sounds GI/Abdominal exam: Present: soft, tenderness (Negative Mercado sign. Positive McBurney point tenderness, positive psoas, positive obturator. Negative Rovsing.), normal bowel sounds. Absent: distended, guarding, rebound, rigid, bruit, pulsatile mass, hernia Extremities exam: Present: normal inspection, full ROM Back exam: Present: normal inspection, full ROM Neurological exam: Present: alert, oriented X3 Psychiatric exam: Present: normal affect, normal mood Skin exam: Present: warm, dry, intact, normal color Course Vital Signs 07/07/19 07/07/19 07/07/19 02:30 03:13 04:11 Temperature 98.5 F 98.5 F Pulse Rate 88 104 H 74 Respiratory 18 18 16 Rate Blood Pressure 117/83 108/54 104/58 O2 Sat by Pulse 100 100 100 Oximetry Medical Decision Making - Medical Decision Making Patient a 28-year-old female presents emergency Department with a chief complaint of abdominal pain. Physical examination is indicative of right lower quadrant abdominal pain without positive signs of appendicitis except for Rovsing sign. Patient states she has tubal ligation. Patient was given fluids, antiemetics and analgesia. CBC showed no leukocytosis. CMP is unremarkable. CT of abdomen and pelvis showing free fluid in the cul-de-sac which I suspect to be from possible ovarian cyst rupture. Patient given a Tylenol 3 starter pack and Zofran. Patient advised about the possible side effects of the medication. Patient was to follow-up with a primary care or a literacy consultant. Strict return parameters were thoroughly discussed the patient was understanding and agreeabl e. Case discussed with physician. - Lab Data Result diagrams: 07/07/19 03:05 07/07/19 03:05 Lab Results 07/07/19 07/07/19 07/07/19 Range/Units 03:05 03:05 03:05 WBC 7.5 (3.8-10.6) k/uL RBC 4.43 (3.80-5.40) m/uL Hgb 13.1 (11.4-16.0) gm/dL Hct 38.8 (34.0-46.0) % MCV 87.7 (80.0-100.0) fL MCH 29.5 (25.0-35.0) pg MCHC 33.7 (31.0-37.0) g/dL RDW 12.5 (11.5-15.5) % Plt Count 287 (150-450) k/uL Neutrophils % 54 % Lymphocytes % 37 % Monocytes % 4 % Eosinophils % 3 % Basophils % 0 % Neutrophils # 4.0 (1.3-7.7) k/uL Lymphocytes # 2.8 (1.0-4.8) k/uL Monocytes # 0.3 (0-1.0) k/uL Eosinophils # 0.2 (0-0.7) k/uL Basophils # 0.0 (0-0.2) k/uL Sodium 138 (137-145) mmol/L Potassium 4.2 (3.5-5.1) mmol/L Chloride 106 (98-107) mmol/L Carbon Dioxide 23 (22-30) mmol/L Anion Gap 9 mmol/L BUN 14 (7-17) mg/dL Creatinine 0.50 L (0.52-1.04) mg/dL Est GFR (CKD-EPI)AfAm >90 (>60 ml/min/1.73 sqM) Est GFR (CKD-EPI)NonAf >90 (>60 ml/min/1.73 sqM) Glucose 120 H (74-99) mg/dL Calcium 9.4 (8.4-10.2) mg/dL Total Bilirubin 0.4 (0.2-1.3) mg/dL AST 22 (14-36) U/L ALT 21 (9-52) U/L Alkaline Phosphatase 72 (38-126) U/L Total Protein 7.1 (6.3-8.2) g/dL Albumin 4.2 (3.5-5.0) g/dL Amylase 59 (30-110) U/L Lipase 134 (23-300) U/L Urine Color Urine Appearance (Clear) Urine pH (5.0-8.0) Ur Specific Aiken (1.001-1.035) Urine Protein (Negative) Urine Glucose (UA) (Negative) Urine Ketones (Negative) Urine Blood (Negative) Urine Nitrite (Negative) Urine Bilirubin (Negative) Urine Urobilinogen (<2.0) mg/dL Ur Leukocyte Esterase (Negative) Urine RBC (0-5) /hpf Urine WBC (0-5) /hpf Ur Squamous Epith Cells (0-4) /hpf Urine Mucus (None) /hpf Urine HCG, Qual Not Detected (Not Detectd) 07/07/19 Range/Units 03:05 WBC (3.8-10.6) k/uL RBC (3.80-5.40) m/uL Hgb (11.4-16.0) gm/dL Hct (34.0-46.0) % MCV (80.0-100.0) fL MCH (25.0-35.0) pg MCHC (31.0-37.0) g/dL RDW (11.5-15.5) % Plt Count (150-450) k/uL Neutrophils % % Lymphocytes % % Monocytes % % Eosinophils % % Basophils % % Neutrophils # (1.3-7.7) k/uL Lymphocytes # (1.0-4.8) k/uL Monocytes # (0-1.0) k/uL Eosinophils # (0-0.7) k/uL Basophils # (0-0.2) k/uL Sodium (137-145) mmol/L Potassium (3.5-5.1) mmol/L Chloride (98-107) mmol/L Carbon Dioxide (22-30) mmol/L Anion Gap mmol/L BUN (7-17) mg/dL Creatinine (0.52-1.04) mg/dL Est GFR (CKD-EPI)AfAm (>60 ml/min/1.73 sqM) Est GFR (CKD-EPI)NonAf (>60 ml/min/1.73 sqM) Glucose (74-99) mg/dL Calcium (8.4-10.2) mg/dL Total Bilirubin (0.2-1.3) mg/dL AST (14-36) U/L ALT (9-52) U/L Alkaline Phosphatase (38-126) U/L Total Protein (6.3-8.2) g/dL Albumin (3.5-5.0) g/dL Amylase (30-110) U/L Lipase (23-300) U/L Urine Color Yellow Urine Appearance Clear (Clear) Urine pH 5.0 (5.0-8.0) Ur Specific Aiken 1.029 (1.001-1.035) Urine Protein Negative (Negative) Urine Glucose (UA) Negative (Negative) Urine Ketones 1+ H (Negative) Urine Blood Negative (Negative) Urine Nitrite Negative (Negative) Urine Bilirubin Negative (Negative) Urine Urobilinogen <2.0 (<2.0) mg/dL Ur Leukocyte Esterase Trace H (Negative) Urine RBC 1 (0-5) /hpf Urine WBC 2 (0-5) /hpf Ur Squamous Epith Cells 2 (0-4) /hpf Urine Mucus Many H (None) /hpf Urine HCG, Qual (Not Detectd) Disposition Clinical Impression: Abdominal pain, Nausea & vomiting Disposition: HOME SELF-CARE Condition: Stable Instructions (If sedation given, give patient instructions): Abdominal Pain (ED) Additional Instructions: Please follow up with primary care. Patient to emergency department if symptoms worsen. Is patient prescribed a controlled substance at d/c from ED?: No Referrals: Willi El MD [Primary Care Provider] - 1-2 days Time of Disposition: 04:21
[2019-07-07 03:14] LABS: Basophils % (A) 0 %; Eosinophils # (A) 0.2 k/uL (0-0.7); Eosinophils % (A) 3 %; HCT 38.8 % (34.0-46.0); HGB 13.1 gm/dL (11.4-16.0); Lymphocytes # (A) 2.8 k/uL (1.0-4.8); Lymphocytes % (A) 37 %; MCH 29.5 pg (25.0-35.0); MCHC 33.7 g/dL (31.0-37.0); MCV 87.7 fL (80.0-100.0); Mean Platelet Volume 6.9; Monocytes # (A) 0.3 k/uL (0-1.0); Monocytes % (A) 4 %; Neutrophils % (A) 54 %; Platelet Count 287 k/uL (150-450); RBC 4.43 m/uL (3.80-5.40); RDW 12.5 % (11.5-15.5); WBC 7.5 k/uL (3.8-10.6)
[2019-07-07 03:22] LABS: ALT 21 U/L (9-52); AST 22 U/L (14-36); African American GFR (CKD) >90 (>60 ml/min/1.73 sqM); Albumin 4.2 g/dL (3.5-5.0); Alkaline Phosphatase 72 U/L (38-126); Amylase 59 U/L (30-110); Anion Gap 9 mmol/L; Blood Urea Nitrogen 14 mg/dL (7-17); Calcium 9.4 mg/dL (8.4-10.2); Carbon Dioxide 23 mmol/L (22-30); Chloride 106 mmol/L (98-107); Glucose 120 mg/dL (74-99); Non-African American GFR(CKD) >90 (>60 ml/min/1.73 sqM); Potassium 4.2 mmol/L (3.5-5.1); Sodium 138 mmol/L (137-145); Total Bilirubin 0.4 mg/dL (0.2-1.3); Total Protein 7.1 g/dL (6.3-8.2)
[2019-07-07 03:27] LABS: Appearance,Urine Clear (Clear); Bilirubin,Urine Negative (Negative); Blood,Urine Negative (Negative); Color,Urine Yellow; Glucose,Urine (UA) Negative (Negative); Ketones,Urine 1+ (Negative); Leukocyte Esterase,Urine Trace (Negative); Mucus,Urine Many /hpf; Nitrite,Urine Negative (Negative); Protein,Urine Negative (Negative); RBC,Urine 1 /hpf (0-5); Specific Gravity,Urine 1.029 (1.001-1.035); Squamous Epithelial Cell,Urine 2 /hpf (0-4); Urobilinogen,Urine <2.0 mg/dL (<2.0)
--- NOTE | 2019-07-07 04:05 | CT ---
EXAMINATION TYPE: CT abdomen pelvis w con DATE OF EXAM: 07/07/2019 COMPARISON: None HISTORY: Patient presents with RLQ pain. CT DLP: 614.4 mGycm Automated exposure control for dose reduction was used. TECHNIQUE: Helical acquisition of images was performed from the lung bases through the pelvis. CONTRAST: Performed without Oral Contrast and with IV Contrast, patient injected with 100mL mL of Isovue 300. FINDINGS: Lung bases are clear. There is no pleural effusion. Heart size is normal. Liver spleen pancreas gallbladder stomach appear normal. Bile ducts are not dilated. There is no adre nal mass. Kidneys show satisfactory contrast opacification. There is no hydronephrosis. Ureters are n ot dilated. There is no retroperitoneal adenopathy. Bladder distends smoothly. There is no inguinal h ernia. There is tiny amount of fluid in the cul-de-sac. Uterus is retroverted. There is probably ante rior wall small uterine fibroid. There is no mesenteric edema. There is no ascites or free air. There is no sign of a bowel obstructio n. There is no evidence of thickened appendix. Appendix is seen and is nondilated. Appendix is cartography supervisor ior at the lower pole right kidney. Lumbar spine is intact. Bony pelvis is intact. IMPRESSION: THERE IS SMALL AMOUNT OF FREE FLUID IN THE CUL-DE-SAC. OTHERWISE NEGATIVE CT SCAN ABDOMEN AND PELVIS.
[2019-07-07 04:11] VITALS: BP 104/58; PULSE 74; RESP 16
[2019-07-07] MEDS ORDERED: ACET/COD 300 MG/30 MG STARTER PACK 6 TAB BTL PO STA (04:20)
[2019-07-07] MEDS ORDERED: ONDANSETRON ODT 4 MG TAB PO STA (04:20)
== END 2019-07-07 04:43 | disposition home or self-care (01) ==
LOC: EC 02:29
DX: R10.11 Right upper quadrant pain (principal); R11.2 Nausea with vomiting, unspecified; R10.31 Right lower quadrant pain; Z98.51 Tubal ligation status; Z88.3 Allergy status to other anti-infective agents; Z86.14 Personal history of Methicillin resistant Staphylococcus aureus infection
CPT/HCPCS: 36415; 80053; 82150; 83690; 85025; 81001; 81025; 74177; 99284; 96374; 96375 ×2; 96372; 96361; J0500; J2405; J2270; C9113; Q9967

== ENCOUNTER → 2019-12-21 | Outpatient (CLI) | payer OTHER ==
[2019-12-21 12:36] LABS: Basophils % (A) 1 %; Eosinophils # (A) 0.2 k/uL (0-0.7); Eosinophils % (A) 3 %; HCT 38.3 % (34.0-46.0); HGB 12.4 gm/dL (11.4-16.0); Lymphocytes # (A) 1.6 k/uL (1.0-4.8); Lymphocytes % (A) 34 %; MCH 29.8 pg (25.0-35.0); MCHC 32.4 g/dL (31.0-37.0); MCV 91.9 fL (80.0-100.0); Mean Platelet Volume 7.8; Monocytes # (A) 0.2 k/uL (0-1.0); Monocytes % (A) 4 %; Neutrophils # (A) 2.7 k/uL (1.3-7.7); Neutrophils % (A) 56 %; Platelet Count 194 k/uL (150-450); RBC 4.17 m/uL (3.80-5.40); RDW 13.3 % (11.5-15.5); WBC 4.8 k/uL (3.8-10.6)
[2019-12-21 14:15] LABS: Erythrocyte Sedimentation Rate 5 mm/hr (0-20)
== END | disposition home or self-care (01) ==
LOC: LABWHC1 12:00
PROVIDERS: ATTEND Otolaryngology
DX: R53.83 Other fatigue (principal); M54.2 Cervicalgia
CPT/HCPCS: 36415; 85025; 85652; 86038; 86431

== ENCOUNTER → 2019-12-28 | Outpatient (CLI) | payer OTHER ==
--- NOTE | 2019-12-28 09:37 | CT ---
EXAMINATION TYPE: CT soft tissue neck w con DATE OF EXAM: 12/28/2019 HISTORY: Lt neck in particular mastoid pain for one month. COMPARISON: NONE CT DLP: 271.1 mGycm. Automated Exposure Control for Dose Reduction was Utilized. TECHNIQUE: CT scan of the neck is performed with IV Contrast, patient injected with 100 mL of Isovue 300, axial images are obtained, coronal and sagittal reformatted images are reviewed. FINDINGS: Airway: Mild or early emphysematous change suspected in visualized lung apices. Parotid/submandibular glands: No gross abnormality seen. Carotid/Vascular Structures: No significant abnormality is present. Osseous Structures: No significant abnormality is seen. Other: Mild mucosal thickening involving bilateral maxillary sinuses and left sphenoid sinus. Moderat e mucosal thickening involving ethmoid sinuses bilaterally. Mild to moderate mucosal thickening invol ving the visualized portion of left frontal sinus. Temporomandibular joints are maintained bilaterally. Scattered prominent but subcentimeter lymph node s throughout the neck bilaterally. No definitive greater than 1 cm abnormal adenopathy. IMPRESSION: No significant abnormality is seen to account for patient's symptoms of left sided jaw pain. Chronic paranasal sinus disease otherwise unremarkable study.
== END | disposition home or self-care (01) ==
LOC: RADCTMAIN 08:45
PROVIDERS: ATTEND Otolaryngology
DX: J34.89 Other specified disorders of nose and nasal sinuses (principal); R49.0 Dysphonia
CPT/HCPCS: 70491; Q9967

== ENCOUNTER 2020-05-10 12:28 | Emergency (ER) | payer OTHER ==
[2020-05-10 12:42] VITALS: TEMP 98.5
[2020-05-10 13:02] VITALS: RESP 18
--- NOTE | 2020-05-10 13:09 | ED ---
General Adult HPI - General Chief complaint: Chest Pain Stated complaint: chest pain Time Seen by Provider: 05/10/20 12:47 Source: patient, RN notes reviewed Mode of arrival: ambulatory Limitations: no limitations - History of Present Illness Initial comments: 29-year-old female presents to the ER for a chief complaint of chest pain 3 hours. Patient reports it started as a sharp stabbing chest pain in the left side of her anterior chest that radiates to her left shoulder. States it is now an aching pain however the sharp stabbing pains do come intermittently. She does believe that breathing worsens the pain. She denies any injuries to the chest wall. Patient denies any cardiac history. Patient did start Adipex one week ago. No other medications.Patient has no other complaints at this time including shortness of breath, abdominal pain, nausea or vomiting, headache, or visual changes. - Related Data Home Medications Medication Instructions Recorded Confirmed Phentermine HCl [Adipex-P] 37.5 mg PO DAILY 05/10/20 05/10/20 Allergies Allergy/AdvReac Type Severity Reaction Status Date / Time fluconazole [From Diflucan] Allergy Swelling Verified 05/10/20 13:59 of Lips Review of Systems ROS Statement: Those systems with pertinent positive or pertinent negative responses have been documented in the HPI. ROS Other: All systems not noted in ROS Statement are negative. Past Medical History Past Medical History: Asthma, Syncope Additional Past Medical History / Comment(s): ASTHMA YOUNG CHILD. HX SYNCOPAL EPISODES, VAGO-VAGAL, NONE SINCE 2013. DEVIATED SEPTUM, CHRONIC SINUS INFECTION. History of Any Multi-Drug Resistant Organisms: MRSA Date of last positivie culture/infection: 09/2014 MDRO Source:: AXILLA, POSS IN EAR ALSO. Past Surgical History: Adenoidectomy, Section, Ear Surgery, Tonsillectomy Additional Past Surgical History / Comment(s): BMT ,sinus surgery Past Anesthesia/Blood Transfusion Reactions: Postoperative Nausea & Vomiting (PONV) Past Psychological History: No Psychological Hx Reported Past Alcohol Use History: None Reported Past Drug Use History: None Reported - Past Family History Mother Family Medical History: No Reported History General Exam Limitations: no limitations General appearance: alert, in no apparent distress Head exam: Present: atraumatic, normocephalic, normal inspection Eye exam: Present: normal appearance, PERRL, EOMI. Absent: scleral icterus, conjunctival injection ENT exam: Present: normal exam, mucous membranes moist Neck exam: Present: normal inspection, full ROM. Absent: tenderness, meningismus, lymphadenopathy Respiratory exam: Present: normal lung sounds bilaterally, chest wall tenderness (Left-sided anterior chest wall tenderness.). Absent: respiratory distress, wheezes, rales, rhonchi, stridor Cardiovascular Exam: Present: regular rate, normal rhythm, normal heart sounds. Absent: systolic murmur, diastolic murmur, rubs, gallop, clicks GI/Abdominal exam: Present: soft, normal bowel sounds. Absent: distended, tenderness, guarding, rebound, rigid Course Vital Signs 05/10/20 12:40 Temperature 98.5 F Pulse Rate 101 H Respiratory 18 Rate Blood Pressure 126/79 O2 Sat by Pulse 100 Oximetry EKG Findings - EKG Comments: EKG Findings:: Sinus rhythm, ventricular rate 83, MN interval 108, QTC 415 Medical Decision Making - Medical Decision Making Vitals are stable. Physical exam does reveal a tender left anterior chest. CBC CMP is unremarkable. Troponin is negative. D-dimer is 0.20. Chest x-ray shows no acute pulmonary process. Heart size is normal. Pain is reproducible. At this time patient may have a chest wall syndrome. Patient should follow up with primary care. She is to return here if she has worsening symptoms. She will take Motrin otherwise. I did recommend patient to discontinue Adipex. - Lab Data Result diagrams: 05/10/20 13:07 05/10/20 13:07 Lab Results 05/10/20 05/10/20 05/10/20 Range/Units 13:07 13:07 13:07 WBC 7.2 (3.8-10.6) k/uL RBC 4.82 (3.80-5.40) m/uL Hgb 13.6 (11.4-16.0) gm/dL Hct 42.4 (34.0-46.0) % MCV 88.0 (80.0-100.0) fL MCH 28.1 (25.0-35.0) pg MCHC 31.9 (31.0-37.0) g/dL RDW 12.9 (11.5-15.5) % Plt Count 223 (150-450) k/uL Neutrophils % 65 % Lymphocytes % 27 % Monocytes % 4 % Eosinophils % 3 % Basophils % 1 % Neutrophils # 4.7 (1.3-7.7) k/uL Lymphocytes # 1.9 (1.0-4.8) k/uL Monocytes # 0.3 (0-1.0) k/uL Eosinophils # 0.2 (0-0.7) k/uL Basophils # 0.0 (0-0.2) k/uL PT 10.7 (9.0-12.0) sec INR 1.0 (<1.2) APTT 26.5 (22.0-30.0) sec D-Dimer 0.20 (<0.60) mg/L FEU Sodium (137-145) mmol/L Potassium (3.5-5.1) mmol/L Chloride (98-107) mmol/L Carbon Dioxide (22-30) mmol/L Anion Gap mmol/L BUN (7-17) mg/dL Creatinine (0.52-1.04) mg/dL Est GFR (CKD-EPI)AfAm (>60 ml/min/1.73 sqM) Est GFR (CKD-EPI)NonAf (>60 ml/min/1.73 sqM) Glucose (74-99) mg/dL Calcium (8.4-10.2) mg/dL Magnesium (1.6-2.3) mg/dL Total Bilirubin (0.2-1.3) mg/dL AST (14-36) U/L ALT (4-34) U/L Alkaline Phosphatase (38-126) U/L Troponin I (0.000-0.034) ng/mL Total Protein (6.3-8.2) g/dL Albumin (3.5-5.0) g/dL Lipase (23-300) U/L Urine HCG, Qual Not Detected (Not Detectd) 05/10/20 05/10/20 Range/Units 13:07 13:07 WBC (3.8-10.6) k/uL RBC (3.80-5.40) m/uL Hgb (11.4-16.0) gm/dL Hct (34.0-46.0) % MCV (80.0-100.0) fL MCH (25.0-35.0) pg MCHC (31.0-37.0) g/dL RDW (11.5-15.5) % Plt Count (150-450) k/uL Neutrophils % % Lymphocytes % % Monocytes % % Eosinophils % % Basophils % % Neutrophils # (1.3-7.7) k/uL Lymphocytes # (1.0-4.8) k/uL Monocytes # (0-1.0) k/uL Eosinophils # (0-0.7) k/uL Basophils # (0-0.2) k/uL PT (9.0-12.0) sec INR (<1.2) APTT (22.0-30.0) sec D-Dimer (<0.60) mg/L FEU Sodium 137 (137-145) mmol/L Potassium 4.0 (3.5-5.1) mmol/L Chloride 105 (98-107) mmol/L Carbon Dioxide 24 (22-30) mmol/L Anion Gap 8 mmol/L BUN 11 (7-17) mg/dL Creatinine 0.54 (0.52-1.04) mg/dL Est GFR (CKD-EPI)AfAm >90 (>60 ml/min/1.73 sqM) Est GFR (CKD-EPI)NonAf >90 (>60 ml/min/1.73 sqM) Glucose 100 H (74-99) mg/dL Calcium 9.6 (8.4-10.2) mg/dL Magnesium 2.0 (1.6-2.3) mg/dL Total Bilirubin 0.6 (0.2-1.3) mg/dL AST 23 (14-36) U/L ALT 11 (4-34) U/L Alkaline Phosphatase 60 (38-126) U/L Troponin I <0.012 (0.000-0.034) ng/mL Total Protein 7.5 (6.3-8.2) g/dL Albumin 4.8 (3.5-5.0) g/dL Lipase 94 (23-300) U/L Urine HCG, Qual (Not Detectd) Disposition Clinical Impression: Atypical chest pain Disposition: HOME SELF-CARE Condition: Good Instructions (If sedation given, give patient instructions): Costochondritis (ED), Chest Pain (ED) Additional Instructions: Please follow-up with your doctor in one to 2 days. Please return to the emerg ency room if you have any worsening symptoms. Is patient prescribed a controlled substance at d/c from ED?: No Referrals: Rayshawn Hooker MD [Primary Care Provider] - 1-2 days Time of Disposition: 14:34
[2020-05-10 13:24] LABS: Basophils % (A) 1 %; Eosinophils # (A) 0.2 k/uL (0-0.7); Eosinophils % (A) 3 %; HCT 42.4 % (34.0-46.0); HGB 13.6 gm/dL (11.4-16.0); Lymphocytes # (A) 1.9 k/uL (1.0-4.8); Lymphocytes % (A) 27 %; MCH 28.1 pg (25.0-35.0); MCHC 31.9 g/dL (31.0-37.0); Monocytes # (A) 0.3 k/uL (0-1.0); Monocytes % (A) 4 %; Neutrophils # (A) 4.7 k/uL (1.3-7.7); Neutrophils % (A) 65 %; Platelet Count 223 k/uL (150-450); RBC 4.82 m/uL (3.80-5.40); RDW 12.9 % (11.5-15.5); WBC 7.2 k/uL (3.8-10.6)
[2020-05-10 13:34] LABS: ALT 11 U/L (4-34); AST 23 U/L (14-36); African American GFR (CKD) >90 (>60 ml/min/1.73 sqM); Albumin 4.8 g/dL (3.5-5.0); Alkaline Phosphatase 60 U/L (38-126); Anion Gap 8 mmol/L; Blood Urea Nitrogen 11 mg/dL (7-17); Calcium 9.6 mg/dL (8.4-10.2); Carbon Dioxide 24 mmol/L (22-30); Chloride 105 mmol/L (98-107); Glucose 100 mg/dL (74-99); Non-African American GFR(CKD) >90 (>60 ml/min/1.73 sqM); Sodium 137 mmol/L (137-145); Total Bilirubin 0.6 mg/dL (0.2-1.3); Total Protein 7.5 g/dL (6.3-8.2)
[2020-05-10 13:42] LABS: D-Dimer 0.2 mg/L FEU (<0.60); Partial Thromboplastin Time 26.5 sec (22.0-30.0); Prothrombin Time 10.7 sec (9.0-12.0)
--- NOTE | 2020-05-10 13:43 | XR ---
EXAMINATION TYPE: XR chest 2V DATE OF EXAM: 05/10/2020 COMPARISON: 05/14/2007 INDICATION: Chest pain TECHNIQUE: Frontal and lateral views of the chest are obtained. FINDINGS: The heart size is normal. The pulmonary vasculature is normal. The lungs are clear. IMPRESSION: 1. No acute pulmonary process.
[2020-05-10] MEDS ORDERED: KETOROLAC 15 MG/ML 1 ML VIAL IVP STA (14:08)
[2020-05-10 14:40] VITALS: BP 132/87; PULSE 98
== END 2020-05-10 14:39 | disposition home or self-care (01) ==
LOC: EC 12:28
DX: R07.89 Other chest pain (principal); Z79.899 Other long term (current) drug therapy; Z88.3 Allergy status to other anti-infective agents
CPT/HCPCS: 36415; 93005; 85379; 80053; 83690; 83735; 84484; 85025; 85610; 85730; 81025; 71046; 99285; 96374; J1885

== ENCOUNTER → 2021-02-13 | Outpatient (CLI) | payer BC ==
--- NOTE | 2021-02-13 10:42 | USB ---
Reason for exam: clinical finding. History: Family history of breast cancer in maternal aunt at age 50. Indicated problem(s): palpable abnormality in the right breast. Physical Findings: Nurse did not find any significant physical abnormalities on exam. US Breast Limited RT Right limited breast ultrasound including focal area of concern, retroareolar and axilla demonstrates no cystic or solid lesion seen. No sonographic findings at right breast lump. These results were verbally communicated with the patient and result sheet given to the patient on 02/13/21. ASSESSMENT: Negative, BI-RAD 1 RECOMMENDATION: Clinical management of the right breast. Manage on a clinical basis with regard to right breast lump.
== END | disposition home or self-care (01) ==
LOC: RADUSWWP 09:36
PROVIDERS: ATTEND Obstetrics & Gynecology
DX: R92.8 Other abnormal and inconclusive findings on diagnostic imaging of breast (principal); Z80.3 Family history of malignant neoplasm of breast

== ENCOUNTER → 2021-02-22 | Outpatient (CLI) | payer BC | END | disposition home or self-care (01) ==

== ENCOUNTER → 2021-03-23 | Outpatient (CLI) | payer BC ==
--- NOTE | 2021-03-23 14:37 | EEG ---
ELECTROENCEPHALOGRAM REPORT DATE OF SERVICE: 03/23/2021 CLINICAL HISTORY: This is a 30-year-old woman with reported history of syncope who has new onset right eye twitching that evolves into a whole body tremor. The video EEG is obtained to evaluate for seizure epileptiform activity. RELEVANT MEDICATION: The patient is not on any anti-epileptic drugs. EEG TYPE: A routine 21 channel EEG is performed with video using the 10/20 electrode placement system. DESCRIPTION: Wakefulness and brief drowsiness are obtained. During wakefulness, there is a posterior dominant rhythm of low to moderate voltage of 11 hertz activity. There was no physiological sleep abductors seen. Interictal and ictal is none. ACTIVATION PROCEDURE: Photic stimulation did evoke a posterior driving response at multiple flash frequencies. During photic stimulation, the patient had episodes of right side shaking, right eye complaints and feeling dizzy and that was noted by the electroencephalographic technician around 7:38, 7:39 and 7:41. Those episodes are without any EEG correlate for seizure. Hyperventilation is not performed. CLINICAL INTERPRETATION: This is a normal routine EEG. There are no focal slowing, epileptiform discharges or seizures on the EEG. The event captured during this study are without any EEG correlate for seizure. Clinical correlation is recommended. RECOMMENDATION: Recommend prolonged EEG to capture further episodes to rule out seizures. MMODL / IJN: [id number] / ODALYS
== END | disposition home or self-care (01) ==
LOC: NEUROMAIN 06:52
PROVIDERS: ATTEND Family Medicine
DX: G40.109 Localization-related (focal) (partial) symptomatic epilepsy and epileptic syndromes with simple partial seizures, not intractable, without status epilepticus (principal)
CPT/HCPCS: 95816

== ENCOUNTER → 2021-04-13 | Outpatient (CLI) | payer BC ==
[2021-04-13 16:52] LABS: Basophils # (A) 0.03 X 10*3/uL (0.00-0.10); Basophils % (A) 0.6 %; Eosinophils # (A) 0.17 X 10*3/uL (0.04-0.35); Eosinophils % (A) 3.2 %; HCT 39.7 % (37.2-46.3); Lymphocytes # (A) 1.53 X 10*3/uL (0.90-5.00); Lymphocytes % (A) 28.7 %; MCHC 32.7 g/dL (32.0-37.0); MCV 91.7 fL (80.0-97.0); Mean Platelet Volume 11.2 fL (9.5-12.2); Monocytes # (A) 0.29 X 10*3/uL (0.20-1.00); Monocytes % (A) 5.4 %; Neutrophils # (A) 3.31 X 10*3/uL (1.80-7.70); Neutrophils % (A) 61.9 %; Platelet Count 228 X 10*3/uL (140-440); RBC 4.33 X 10*6/uL (4.10-5.20); RDW 12.6 % (11.5-14.5); WBC 5.34 X 10*3/uL (4.50-10.00)
[2021-04-13 19:28] LABS: African American GFR (CKD) 142.8 (60.0-200.0); Albumin 4.5 g/dL (3.80-4.90); Albumin/Globulin Ratio 2.05 (1.60-3.17); Anion Gap 10.7 mmol/L (4.00-12.00); Carbon Dioxide 25.3 mmol/L (21.6-31.8); Globulin 2.2 g/dL (1.6-3.3); Magnesium 1.8 mg/dL (1.5-2.4); Non-African American GFR(CKD) 123.2 (60.0-200.0); Total Bilirubin 0.5 mg/dL (0.2-1.2); Total Protein 6.7 g/dL (6.2-8.2)
[2021-04-13 20:12] LABS: Folate, Serum 14.2 ng/mL
[2021-04-13 20:34] LABS: Hemoglobin A1C 4.9 % (4.0-6.0)
== END | disposition home or self-care (01) ==
LOC: LABWHC1 09:13
PROVIDERS: ATTEND Nurse Practitioner Adult Health
DX: I95.1 Orthostatic hypotension (principal); R25.1 Tremor, unspecified
CPT/HCPCS: 36415; 80053; 82024; 82533; 82607; 82746; 83036; 83735; 83970; 84439; 84443; 84588; 85025; 86376; 86800

== ENCOUNTER → 2021-04-17 | Outpatient (CLI) | payer BC ==
--- NOTE | 2021-04-18 04:22 | MR ---
EXAMINATION TYPE: MR brain wo/w con DATE OF EXAM: 04/17/2021 COMPARISON: None HISTORY: Partial seizure and tremors for 1 month. CONTRAST: Standard multiplanar, multisequence MRI departmental protocol utilizing 6 mL intravenous Gadavist isaiah olinium contrast. Multiplanar multiecho imaging of the brain without and subsequently with intravenous contrast. Ventricles and sulci appear normal. There is no mass effect nor midline shift. There is no evidence o f intracranial hemorrhage. The diffusion images show no evidence of an acute infarct. There is some mild mucosal thickening in the maxillary sinuses. The roman-white matter structures have fairly normal signal pattern. There is no evidence of cerebral edema. Brainstem is intact. Corpus ca llosum appears normal. Sella turcica appears intact. Pituitary stalk is in the midline. Optic chiasm appears normal. There is uniform enhancement of the pituitary gland. There is normal enhancement of the venous sinuses. There is no pathologic enhancement. There is some mild mucosal thickening in the left frontal and bilateral ethmoid sinuses. IMPRESSION: Negative MR scan of the brain. Sinusitis.
== END | disposition home or self-care (01) ==
LOC: RADMRIMAIN 15:53
PROVIDERS: ATTEND Family Medicine
DX: R56.9 Unspecified convulsions (principal); R25.1 Tremor, unspecified; J32.9 Chronic sinusitis, unspecified
CPT/HCPCS: 70553; A9585

== ENCOUNTER 2022-01-27 11:01 | Emergency (ER) | payer BC ==
[2022-01-27] MEDS ORDERED: METOCLOPRAMIDE 5 MG/ML 2 ML VIAL IVP STA (11:31)
[2022-01-27] MEDS ORDERED: SODIUM CHLORIDE 0.9% 1,000 ML IV STA (11:31)
[2022-01-27] MEDS ORDERED: SODIUM CHLORIDE 0.9% 500 ML 500 ML IV STA (11:31)
[2022-01-27 11:32] VITALS: RESP 18
[2022-01-27 12:04] LABS: Basophils # (A) 0.1 k/uL (0-0.2); Basophils % (A) 1 %; Eosinophils # (A) 0.3 k/uL (0-0.7); Eosinophils % (A) 5 %; HCT 41.4 % (34.0-46.0); HGB 13.1 gm/dL (11.4-16.0); Lymphocytes # (A) 1.8 k/uL (1.0-4.8); Lymphocytes % (A) 33 %; MCH 29.3 pg (25.0-35.0); MCHC 31.7 g/dL (31.0-37.0); MCV 92.6 fL (80.0-100.0); Mean Platelet Volume 7.8; Monocytes # (A) 0.3 k/uL (0-1.0); Monocytes % (A) 5 %; Neutrophils # (A) 2.9 k/uL (1.3-7.7); Neutrophils % (A) 54 %; Platelet Count 208 k/uL (150-450); RBC 4.47 m/uL (3.80-5.40); RDW 12.5 % (11.5-15.5); WBC 5.3 k/uL (3.8-10.6)
[2022-01-27 12:10] LABS: ALT 15 U/L (4-34); African American GFR (CKD) >90 (>60 ml/min/1.73 sqM); Albumin 4.7 g/dL (3.5-5.0); Amylase 64 U/L (30-110); Anion Gap 8 mmol/L; Blood Urea Nitrogen 15 mg/dL (7-17); Calcium 9.1 mg/dL (8.4-10.2); Carbon Dioxide 27 mmol/L (22-30); Chloride 104 mmol/L (98-107); Glucose 88 mg/dL (74-99); Lipase 71 U/L (23-300); Non-African American GFR(CKD) >90 (>60 ml/min/1.73 sqM); Sodium 139 mmol/L (137-145); Total Bilirubin 0.7 mg/dL (0.2-1.3); Total Protein 7.4 g/dL (6.3-8.2)
--- NOTE | 2022-01-27 12:12 | US ---
EXAMINATION TYPE: US gallbladder DATE OF EXAM: 01/27/2022 COMPARISON: None CLINICAL HISTORY: pain. Nausea EXAM MEASUREMENTS: Liver Length: 13.6 cm Gallbladder Wall: 0.2 cm CBD: 0.2 cm Right Kidney: 10.8 x 5.2 x 4.1 cm Pancreas: wnl Liver: wnl Gallbladder: wnl Evidence for sonographic Mercado's sign: neg CBD: wnl Right Kidney: No hydronephrosis or masses seen There are no renal calcifications or solid renal masses. IMPRESSION: No significant abnormality seen.
[2022-01-27 12:29] LABS: AST 31 U/L (14-36); Alkaline Phosphatase 38 U/L (38-126)
--- NOTE | 2022-01-27 13:17 | ED ---
Abdominal Pain HPI - General Chief Complaint: Abdominal Pain Stated Complaint: Abd pain Time Seen by Provider: 01/27/22 11:21 Source: patient, RN notes reviewed Mode of arrival: ambulatory Limitations: no limitations - History of Present Illness Initial Comments: 31-year-old female presents emergency Department chief complaint of abdominal pain, distention. Patient states his started sore week ago initially with just some mild GI symptoms. She states she is that she had a viral illness. She states that isn't persistent including increasing bloating the next several days. She states that she became constipated though she had normal bowel movement last few days which she continues to have worsening abdominal discomfort. Patient denies any fever or chills at this time she states that she is at some chills she had prior tubal ligation no appendectomy or cholecystectomy. No chest pain or shortness of breath. Patient denies any dysuria hematuria patient offers no other complaints. - Related Data Home Medications Medication Instructions Recorded Confirmed FLUoxetine HCL [PROzac] 20 mg PO DAILY 01/27/22 01/27/22 buPROPion XL [Wellbutrin XL] 150 mg PO DAILY 01/27/22 01/27/22 Previous Rx's Medication Instructions Recorded Dicyclomine [Bentyl] 20 mg PO TID #21 tablet 01/27/22 Metoclopramide [Reglan] 10 mg PO TID PRN #15 tab 01/27/22 Allergies Allergy/AdvReac Type Severity Reaction Status Date / Time fluconazole [From Diflucan] Allergy Anaphylaxis Verified 01/27/22 12:55 Review of Systems ROS Statement: Those systems with pertinent positive or pertinent negative responses have been documented in the HPI. ROS Other: All systems not noted in ROS Statement are negative. Past Medical History Past Medical History: Asthma, Syncope Additional Past Medical History / Comment(s): ASTHMA YOUNG CHILD. HX SYNCOPAL EPISODES, VAGO-VAGAL, NONE SINCE 2013. DEVIATED SEPTUM, CHRONIC SINUS INFECTION. History of Any Multi-Drug Resistant Organisms: MRSA Date of last positivie culture/infection: 09/2014 MDRO Source:: AXILLA, POSS IN EAR ALSO. Past Surgical History: Adenoidectomy, Section, Ear Surgery, Tonsillectomy Additional Past Surgical History / Comment(s): BMT ,sinus surgery Past Anesthesia/Blood Transfusion Reactions: Postoperative Nausea & Vomiting (PONV) Past Psychological History: No Psychological Hx Reported Past Alcohol Use History: None Reported Past Drug Use History: None Reported - Past Family History Mother Family Medical History: No Reported History General Exam Limitations: no limitations General appearance: alert, in no apparent distress Head exam: Present: atraumatic, normocephalic, normal inspection Eye exam: Present: normal appearance, PERRL, EOMI. Absent: scleral icterus, conjunctival injection, periorbital swelling ENT exam: Present: normal exam, normal oropharynx, mucous membranes moist Neck exam: Present: normal inspection, full ROM. Absent: tenderness, meningismus, lymphadenopathy Respiratory exam: Present: normal lung sounds bilaterally. Absent: respiratory distress, wheezes, rales, rhonchi, stridor Cardiovascular Exam: Present: regular rate, normal rhythm, normal heart sounds. Absent: systolic murmur, diastolic murmur, rubs, gallop, clicks GI/Abdominal exam: Present: soft, tenderness, normal bowel sounds. Absent: distended, guarding, rebound, rigid Course Vital Signs 01/27/22 01/27/22 11:12 11:30 Temperature 98.1 F 98.1 F Pulse Rate 80 75 Respiratory 16 18 Rate Blood Pressure 133/78 116/82 O2 Sat by Pulse 100 100 Oximetry Medical Decision Making - Medical Decision Making 31-year-old female present for abdominal discomfort. Patient had on-and-off symptoms for 1 week. Workup was negative at this time. Patient symptoms are with enteritis may residual symptoms. Patient will be discharged she states she feels improved after IV fluids and antiemetics. - Lab Data Result diagrams: 01/27/22 11:38 01/27/22 11:38 Lab Results 01/27/22 01/27/22 01/27/22 Range/Units 11:38 11:38 11:38 WBC 5.3 (3.8-10.6) k/uL RBC 4.47 (3.80-5.40) m/uL Hgb 13.1 (11.4-16.0) gm/dL Hct 41.4 (34.0-46.0) % MCV 92.6 (80.0-100.0) fL MCH 29.3 (25.0-35.0) pg MCHC 31.7 (31.0-37.0) g/dL RDW 12.5 (11.5-15.5) % Plt Count 208 (150-450) k/uL MPV 7.8 Neutrophils % 54 % Lymphocytes % 33 % Monocytes % 5 % Eosinophils % 5 % Basophils % 1 % Neutrophils # 2.9 (1.3-7.7) k/uL Lymphocytes # 1.8 (1.0-4.8) k/uL Monocytes # 0.3 (0-1.0) k/uL Eosinophils # 0.3 (0-0.7) k/uL Basophils # 0.1 (0-0.2) k/uL Sodium 139 (137-145) mmol/L Potassium 5.0 (3.5-5.1) mmol/L Chloride 104 (98-107) mmol/L Carbon Dioxide 27 (22-30) mmol/L Anion Gap 8 mmol/L BUN 15 (7-17) mg/dL Creatinine 0.59 (0.52-1.04) mg/dL Est GFR (CKD-EPI)AfAm >90 (>60 ml/min/1.73 sqM) Est GFR (CKD-EPI)NonAf >90 (>60 ml/min/1.73 sqM) Glucose 88 (74-99) mg/dL Plasma Lactic Acid Vinayak (0.7-2.0) mmol/L Calcium 9.1 (8.4-10.2) mg/dL Total Bilirubin 0.7 (0.2-1.3) mg/dL AST 31 (14-36) U/L ALT 15 (4-34) U/L Alkaline Phosphatase 38 (38-126) U/L Total Protein 7.4 (6.3-8.2) g/dL Albumin 4.7 (3.5-5.0) g/dL Amylase 64 (30-110) U/L Lipase 71 (23-300) U/L Urine Color Yellow Urine Appearance Clear (Clear) Urine pH 6.5 (5.0-8.0) Ur Specific [place] 1.024 (1.001-1.035) Urine Protein Negative (Negative) Urine Glucose (UA) Negative (Negative) Urine Ketones Negative (Negative) Urine Blood Negative (Negative) Urine Nitrite Negative (Negative) Urine Bilirubin Negative (Negative) Urine Urobilinogen <2.0 (<2.0) mg/dL Ur Leukocyte Esterase Trace H (Negative) Urine RBC 1 (0-5) /hpf Urine WBC 2 (0-5) /hpf Ur Squamous Epith Cells 1 (0-4) /hpf Urine Bacteria Rare H (None) /hpf Urine Mucus Moderate H (None) /hpf 01/27/22 Range/Units 11:38 WBC (3.8-10.6) k/uL RBC (3.80-5.40) m/uL Hgb (11.4-16.0) gm/dL Hct (34.0-46.0) % MCV (80.0-100.0) fL MCH (25.0-35.0) pg MCHC (31.0-37.0) g/dL RDW (11.5-15.5) % Plt Count (150-450) k/uL MPV Neutrophils % % Lymphocytes % % Monocytes % % Eosinophils % % Basophils % % Neutrophils # (1.3-7.7) k/uL Lymphocytes # (1.0-4.8) k/uL Monocytes # (0-1.0) k/uL Eosinophils # (0-0.7) k/uL Basophils # (0-0.2) k/uL Sodium (137-145) mmol/L Potassium (3.5-5.1) mmol/L Chloride (98-107) mmol/L Carbon Dioxide (22-30) mmol/L Anion Gap mmol/L BUN (7-17) mg/dL Creatinine (0.52-1.04) mg/dL Est GFR (CKD-EPI)AfAm (>60 ml/min/1.73 sqM) Est GFR (CKD-EPI)NonAf (>60 ml/min/1.73 sqM) Glucose (74-99) mg/dL Plasma Lactic Acid Vinayak 1.4 (0.7-2.0) mmol/L Calcium (8.4-10.2) mg/dL Total Bilirubin (0.2-1.3) mg/dL AST (14-36) U/L ALT (4-34) U/L Alkaline Phosphatase (38-126) U/L Total Protein (6.3-8.2) g/dL Albumin (3.5-5.0) g/dL Amylase (30-110) U/L Lipase (23-300) U/L Urine Color Urine Appearance (Clear) Urine pH (5.0-8.0) Ur Specific [place] (1.001-1.035) Urine Protein (Negative) Urine Glucose (UA) (Negative) Urine Ketones (Negative) Urine Blood (Negative) Urine Nitrite (Negative) Urine Bilirubin (Negative) Urine Urobilinogen (<2.0) mg/dL Ur Leukocyte Esterase (Negative) Urine RBC (0-5) /hpf Urine WBC (0-5) /hpf Ur Squamous Epith Cells (0-4) /hpf Urine Bacteria (None) /hpf Urine Mucus (None) /hpf Disposition Clinical Impression: Abdominal pain, Enteritis Disposition: HOME SELF-CARE Condition: Stable Instructions (If sedation given, give patient instructions): Abdominal Pain (ED) Additional Instructions: Please return to the Emergency Department if symptoms worsen or any other concerns. Prescriptions: Dicyclomine [Bentyl] 20 mg PO TID #21 tablet Metoclopramide [Reglan] 10 mg PO TID PRN #15 tab PRN Reason: Nausea Is patient prescribed a controlled substance at d/c from ED?: No Referrals: Rayshawn Hooker MD [Primary Care Provider] - 1-2 days Time of Disposition: 14:06
[2022-01-27 13:32] LABS: Appearance,Urine Clear (Clear); Bacteria,Urine Rare /hpf; Bilirubin,Urine Negative (Negative); Blood,Urine Negative (Negative); Color,Urine Yellow; Glucose,Urine (UA) Negative (Negative); Ketones,Urine Negative (Negative); Leukocyte Esterase,Urine Trace (Negative); Mucus,Urine Moderate /hpf; Nitrite,Urine Negative (Negative); PH, Urine 6.5 (5.0-8.0); Protein,Urine Negative (Negative); RBC,Urine 1 /hpf (0-5); Specific Gravity,Urine 1.024 (1.001-1.035); Squamous Epithelial Cell,Urine 1 /hpf (0-4); Urobilinogen,Urine <2.0 mg/dL (<2.0); WBC,Urine 2 /hpf (0-5)
--- NOTE | 2022-01-27 13:58 | CT ---
EXAMINATION TYPE: CT abdomen pelvis wo con DATE OF EXAM: 01/27/2022 COMPARISON: 07/07/2019 HISTORY: Generalilzed abdominal pain CT DLP: 415.8 mGycm Automated exposure control for dose reduction was used. TECHNIQUE: Helical acquisition of images was performed from the lung bases through the pelvis. FINDINGS: The lungs are clear. Gallbladder is normal and there is no gallstone, wall thickening, pericholecystic fluid or distention . There is no biliary ductal dilatation. There is no organomegaly of the liver, pancreas, spleen or adrenal glands. There are no renal calcifications or hydronephrosis. The caliber of the abdominal aorta is normal and there is no retroperitoneal adenopathy or hemorrhage . The bowel loops are normal in caliber is no evidence of obstruction. No inflammatory changes are iden tified in the mesentery and there is no free intraperitoneal air or fluid. The appendix is identified and is normal in appearance without dilatation or periappendiceal inflammation. There is no pelvic mass, free fluid, abscess or adenopathy. The osseous structures and soft tissues a re unremarkable. IMPRESSION: No significant abnormality seen.
[2022-01-27 14:38] VITALS: BP 106/69; PULSE 71; TEMP 98.4
== END 2022-01-27 14:41 | disposition home or self-care (01) ==
LOC: EC 11:01
DX: K52.9 Noninfective gastroenteritis and colitis, unspecified (principal); J45.909 Unspecified asthma, uncomplicated; Z88.1 Allergy status to other antibiotic agents
CPT/HCPCS: 36415; 80053; 82150; 83605; 83690; 85025; 81001; 76705; 74176; 99284; 96374; 96361; J2765

== ENCOUNTER → 2022-12-11 | Outpatient (CLI) | payer BC ==
[2022-12-11 11:12] LABS: Basophils # (A) 0.03 X 10*3/uL (0.00-0.10); Basophils % (A) 0.5 %; Eosinophils # (A) 0.34 X 10*3/uL (0.04-0.35); Eosinophils % (A) 5.8 %; HGB 12.8 g/dL (12.0-15.0); Immature Grans, Automated 0.2 %; Lymphocytes # (A) 1.77 X 10*3/uL (0.90-5.00); Lymphocytes % (A) 30.1 %; MCH 28.8 pg (27.0-32.0); MCV 89.9 fL (80.0-97.0); Mean Platelet Volume 10.4 fL (9.5-12.2); Monocytes # (A) 0.33 X 10*3/uL (0.20-1.00); Monocytes % (A) 5.6 %; NRBC Per 100 WBC 0 /100 WBCS (0.0-0.0); Neutrophils % (A) 57.8 %; Platelet Count 213 X 10*3/uL (140-440); RBC 4.45 X 10*6/uL (4.10-5.20); RDW 13.2 % (11.5-14.5); WBC 5.88 X 10*3/uL (4.50-10.00)
[2022-12-11 14:41] LABS: African American GFR (CKD) 133.8 (60.0-200.0); Albumin 4.4 g/dL (3.8-4.9); Anion Gap 13.3 mmol/L (10.00-18.00); BUN/Creat Ratio 17.57 Ratio (12.00-20.00); Blood Urea Nitrogen 12.3 mg/dL (9.0-27.0); Carbon Dioxide 21.7 mmol/L (20.0-27.5); Globulin 2.2 g/dL (1.6-3.3); Non-African American GFR(CKD) 115.4 (60.0-200.0); Potassium 3.7 mmol/L (3.5-5.5); T4, Free (Free Thyroxine) 1.07 ng/dL (0.800-1.800); Total Bilirubin 0.4 mg/dL (0.30-1.20); Total Protein 6.6 g/dL (6.2-8.2)
[2022-12-11 14:50] LABS: Thyroid Peroxidase Antibodies <9.0 U/mL (0.0-33.0)
[2022-12-11 20:37] LABS: Insulin Level 7.6 mIU/mL (3.0-25.0)
== END | disposition home or self-care (01) ==
LOC: LABWHC1 07:43
PROVIDERS: ATTEND Nurse Practitioner Adult Health
DX: R63.5 Abnormal weight gain (principal)
CPT/HCPCS: 36415; 80053; 83036; 83525; 84439; 84443; 84481; 85025; 86376; 86800